=== PATIENT | female | born 1945 | race Caucasian/White ===

== ENCOUNTER 2016-08-14 10:57 | Emergency (ER) | payer MEDICARE, BC ==
[2016-08-14] MEDS ORDERED: ONDANSETRON 4 MG/2 ML VIAL IVP STA (11:58)
[2016-08-14] MEDS ORDERED: HYDROmorphone 1 MG/ML 1 ML SYRINGE IVP STA (11:58)
[2016-08-14] MEDS ORDERED: KETOROLAC 60 MG/2 ML VIAL IVP STA (11:58)
[2016-08-14] MEDS ORDERED: methylPREDNISolone SOD SUCCI 125 MG/2 ML VIAL IV STA (11:58)
--- NOTE | 2016-08-14 12:02 | ED ---
General Adult HPI - General Chief complaint: Weakness Stated complaint: LEG NUMBNESS, LOW BP, WEAKNESS Time Seen by Provider: 08/14/16 11:05 Source: patient, family, RN notes reviewed Mode of arrival: wheelchair Limitations: no limitations, physical limitation - History of Present Illness Initial comments: This is a 71-year-old female presents emergency department with past medical history significant for sciatica. Patient states this morning she bent over to brush her teeth and she started having pain in both of her legs behind the thighs. Patient states now there is some pain in the lower back pain patient denies any recent history of trauma. Patient states she has had pain before in her legs but he usually has one leg or the other. Patient denies any urinary incontinence or urinary retention. Patient denies any other symptoms at this time. She denies headache patient denies numbness weakness. Patient denies any chest pain difficult breathing shortness of breath. Patient denies any abdominal pain patient denies nausea vomiting diarrhea. Patient denies any recent fever chills or cough. - Related Data Home Medications Medication Instructions Recorded Confirmed Letrozole [Femara] 2.5 mg PO HS 01/16/14 08/14/16 Albuterol Inhaler [Ventolin Hfa 2 puff INHALATION RT-QID PRN 11/04/14 08/14/16 Inhaler] HYDROcodone/APAP 7.5-325MG [[place] 1 tab PO Q6HR PRN 02/26/15 08/14/16 7.5-325] Palbociclib [Ibrance] 125 mg PO DIRECTED 02/26/15 08/14/16 Albuterol Nebulized [Ventolin 2.5 mg INHALATION RT-QID PRN 04/02/15 08/14/16 Nebulized] Acetaminophen Tab [Tylenol] 500 mg PO Q6H PRN 09/02/15 08/14/16 Aspirin EC [Ecotrin Low Dose] 162 mg PO DAILY 09/02/15 08/14/16 Pantoprazole [Protonix] 40 mg PO AC-BRKFST 09/08/15 08/14/16 Cholecalciferol [Vitamin D3] 1,000 unit PO DAILY 12/15/15 08/14/16 LORazepam [Ativan] 0.5 mg PO TID PRN 12/15/15 08/14/16 Metoprolol Succinate [Toprol XL] 25 mg PO HS 12/15/15 08/14/16 Budesonide/Formoterol Fumarate 2 puff INHALATION RT-BID 01/21/16 08/14/16 [Symbicort 160-4.5 Mcg Inhaler] Furosemide [Lasix] 20 mg PO DAILY 03/11/16 08/14/16 Potassium Chloride ER [K-Dur 20] 20 meq PO DAILY 03/11/16 08/14/16 Fluticasone Nasal [place] [Flonase 1 spray EA NOSTRIL BID PRN 04/02/16 08/14/16 Nasal [place]] Sertraline [Zoloft] 100 mg PO DAILY 04/02/16 08/14/16 Cetirizine HCl [Zyrtec] 10 mg PO DAILY 08/14/16 08/14/16 Umeclidinium [place] [Incruse 1 puff INHALATION RT-DAILY 08/14/16 08/14/16 Ellipta] Previous Rx's Medication Instructions Recorded predniSONE 20 mg PO DAILY #50 04/04/16 Hydrocodone/Acetaminophen [[place] 1 each PO Q4HR PRN #20 tab 08/14/16 5-325] predniSONE 40 mg PO DAILY #8 tab 08/14/16 Allergies Allergy/AdvReac Type Severity Reaction Status Date / Time Sulfa (Sulfonamide Allergy Rash/Hives Verified 08/14/16 12:17 Antibiotics) Review of Systems ROS Statement: Those systems with pertinent positive or pertinent negative responses have been documented in the HPI. ROS Other: All systems not noted in ROS Statement are negative. 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, osteoporosis,sigmoid diverticulosis(per colonoscopy), chronic back pain , peripheral neuropathy d/t chemo tx's,HOME O2 3 LITERS N/C atc, ANEMIA HAD BLOOD TRANSFUSION, History of Any Multi-Drug Resistant Organisms: None Reported Past Surgical History: Appendectomy, Tonsillectomy Additional Past Surgical History / Comment(s): lt breast bx/ lt breast lumpectomy/ then mastectomy, injection into spine for siatic nerve pain, colonoscpy/polypectomy(benign) Past Anesthesia/Blood Transfusion Reactions: No Reported Reaction Additional Past Anesthesia/Blood Transfusion Reaction / Comment(s): RECEIVED BLOOD-NO REACTIONS. Past Psychological History: Anxiety Additional Psychological History / Comment(s): related to health, takes ativan, patient currently living with daughter Smoking Status: Former smoker Past Alcohol Use History: Rare Additional Past Alcohol Use History / Comment(s): STARTED SMOKING AT AGE 14, QUIT NOVEMBER 2014 Past Drug Use History: None Reported - Past Family History Mother Family Medical History: Cancer Additional Family Medical History / Comment(s): pancreatic cancer Father Family Medical History: Cancer Additional Family Medical History / Comment(s): LUNG CANCER Sister(s) Family Medical History: Cancer Additional Family Medical History / Comment(s): patient states that her 2 sisters both had pancreatic cancer General Exam - General Exam Comments Initial Comments: GENERAL: Patient is well-developed and well-nourished. Patient is nontoxic and well- hydrated and is in moderate distress. ENT: Neck is soft and supple. No significant lymphadenopathy is noted. Oropharynx is clear. Moist mucous membranes. Neck has full range of motion without eliciting any pain. EYES: The sclera were anicteric and conjunctiva were pink and moist. Extraocular movements were intact and pupils were equal round and reactive to light. Eyelids were unremarkable. PULMONARY: Unlabored respirations. Good breath sounds bilaterally. No audible rales rhonchi or wheezing was noted. CARDIOVASCULAR: There is a regular rate and rhythm without any murmurs gallops or rubs. ABDOMEN: Soft and nontender with normal bowel sounds. No palpable organomegaly was noted. There is no palpable pulsatile mass. SKIN: Skin is clear with no lesions or rashes and otherwise unremarkable. NEUROLOGIC: Patient is alert and oriented x3. Cranial nerves II through XII are grossly intact. Motor and sensory are also intact. Normal speech, volume and content. Symmetrical smile. Straight leg test is negative to about 60 bilaterally. Perineum sensation is normal MUSCULOSKELETAL: Normal extremities with adequate strength and full range of motion. No lower extremity swelling or edema. No calf tenderness. LYMPHATICS: No significant lymphadenopathy is noted PSYCHIATRIC: Normal psychiatric evaluation. Normal interpersonal interactions appears functionally intact in deals appropriately with others. No signs of depression. No signs of anxiety. Limitations: no limitations, physical limitation Course Vital Signs 08/14/16 08/14/16 08/14/16 11:01 11:44 12:12 Temperature 97.2 F L 98 F 97.9 F Pulse Rate 79 84 75 Respiratory 18 24 18 Rate Blood Pressure 103/58 103/64 121/57 O2 Sat by Pulse 96 97 94 L Oximetry 08/14/16 08/14/16 12:37 13:35 Temperature 97.1 F L Pulse Rate 76 80 Respiratory 18 18 Rate Blood Pressure 151/66 106/61 O2 Sat by Pulse 99 91 L Oximetry Medical Decision Making - Medical Decision Making EKG shows normal sinus rhythm at 79 bpm [place] interval 150 QRS is 94 Q-T intervals 46 QTC is 465. Patient has T-wave inversions in precordial leads V1 through V5. The patient daughter states that she had numbness of to the back of the thighs patient states it was not numb she still and full sensation but it felt tingly. After the patient received pain medicine she was able to ablate on her own with considerable ease and she felt much improved Disposition Clinical Impression: Sciatica Disposition: HOME SELF-CARE Condition: Good Instructions: Sciatica (ED) Prescriptions: Hydrocodone/Acetaminophen [[place] 5-325] 1 each PO Q4HR PRN #20 tab PRN Reason: Pain predniSONE 40 mg PO DAILY #8 tab Referrals: Luis Galicia MD [Primary Care Provider] - 1-2 days Time of Disposition: 14:02
[2016-08-14 12:13] VITALS: RESP 18
--- NOTE | 2016-08-14 13:18 | XR ---
EXAMINATION TYPE: XR lumbar spine 2 or 3V DATE OF EXAM: 08/14/2016 1:00 PM COMPARISON: 01/27/2014 HISTORY: 71-year-old female with pain TECHNIQUE: 3 views FINDINGS: There is degenerated levoconvex scoliosis. An IVC filter is present. Moderate to advanced multilevel disc/endplate degenerative change with endplate sclerosis, disc inter space narrowing, and endplate spondylosis. Hypertrophic facet arthropathy throughout. There is trace grade 1 anterolisthesis at L5-S1 and grade 1 retrolisthesis at L2-L3. Vertebral body heights are preserved. Overall appearance is similar to 2013. IMPRESSION: Moderate to advanced multilevel spondylotic change. Degenerative grade 1 retrolisthesis at L2-L3 and grade 1 anterolisthesis at L5-S1. Degenerated levoconvex scoliosis. No vertebral compression collapse .
[2016-08-14 13:45] VITALS: BP 106/61; PULSE 80; TEMP 97.1
== END 2016-08-14 14:10 | disposition home or self-care (01) ==
LOC: EC 10:57
DX: M54.41 Lumbago with sciatica, right side (principal); M54.42 Lumbago with sciatica, left side; C50.919 Malignant neoplasm of unspecified site of unspecified female breast; C77.9 Secondary and unspecified malignant neoplasm of lymph node, unspecified; J44.9 Chronic obstructive pulmonary disease, unspecified; I10 Essential (primary) hypertension; M06.9 Rheumatoid arthritis, unspecified; Z86.711 Personal history of pulmonary embolism; Z88.2 Allergy status to sulfonamides; Z79.51 Long term (current) use of inhaled steroids; Z79.82 Long term (current) use of aspirin; Z79.899 Other long term (current) drug therapy; Z87.891 Personal history of nicotine dependence
CPT/HCPCS: 99285; 96374; 96375 ×3; 72100; J2930; J2405; J1885; J1170

== ENCOUNTER 2016-08-20 08:36 | Inpatient (IN) | payer MEDICARE, BC ==
--- NOTE | 2016-08-20 10:53 | ED ---
Extremity Problem HPI - General Chief complaint: Extremity Problem,Nontraumatic Stated complaint: left leg swelling Time Seen by Provider: 08/20/16 10:25 Source: patient, family, RN notes reviewed Mode of arrival: wheelchair Limitations: no limitations - History of Present Illness Initial comments: This is a 71-year-old female history of chronic lung disease and home oxygen also history of blood clots in the past who states she started developing swelling to her left lower extremity yesterday when she got this when it was much worse. She has swelling from her feel real to her groin area. She states is somewhat uncomfortable she does have bruising to both lower extremities but the patient relates it to a dog and jumped in her lap all the time. She is on aspirin. She has chronic lung disease and does get exertional dyspnea and does not know if is any worsening usual. She denies any chest pain she denies any fevers chills or sweats. She denies any focal weakness to her upper or lower extremities. She states she was have a CAT scan today have her back due to recent episodes of pain radiating down the back of her legs. This was not done she was brought to the emergency department for evaluation. MD Complaint: extremity swelling - Related Data Home Medications Medication Instructions Recorded Confirmed Letrozole [Femara] 2.5 mg PO HS 01/16/14 08/20/16 Albuterol Inhaler [Ventolin Hfa 2 puff INHALATION RT-QID PRN 11/04/14 08/20/16 Inhaler] HYDROcodone/APAP 7.5-325MG [[place] 1 tab PO Q4H PRN 02/26/15 08/20/16 7.5-325] Palbociclib [Ibrance] 125 mg PO DIRECTED 02/26/15 08/20/16 Albuterol Nebulized [Ventolin 2.5 mg INHALATION RT-QID PRN 04/02/15 08/20/16 Nebulized] Acetaminophen Tab [Tylenol] 500 mg PO Q6H PRN 09/02/15 08/20/16 Aspirin EC [Ecotrin Low Dose] 162 mg PO DAILY 09/02/15 08/20/16 Pantoprazole [Protonix] 40 mg PO AC-BRKFST 09/08/15 08/20/16 Cholecalciferol [Vitamin D3] 1,000 unit PO DAILY 12/15/15 08/20/16 LORazepam [Ativan] 0.5 mg PO TID PRN 12/15/15 08/20/16 Metoprolol Succinate [Toprol XL] 12.5 mg PO HS 12/15/15 08/20/16 Budesonide/Formoterol Fumarate 2 puff INHALATION RT-BID 01/21/16 08/20/16 [Symbicort 160-4.5 Mcg Inhaler] Furosemide [Lasix] 40 mg PO DAILY 03/11/16 08/20/16 Potassium Chloride ER [K-Dur 20] 20 meq PO DAILY 03/11/16 08/20/16 Fluticasone Nasal [place] [Flonase 1 spray EA NOSTRIL BID PRN 04/02/16 08/20/16 Nasal [place]] Sertraline [Zoloft] 100 mg PO DAILY 04/02/16 08/20/16 Cetirizine HCl [Zyrtec] 10 mg PO DAILY 08/14/16 08/20/16 Umeclidinium [place] [Incruse 1 puff INHALATION RT-DAILY 08/14/16 08/20/16 Ellipta] Cyclobenzaprine [Flexeril] 10 mg PO HS 08/20/16 08/20/16 Previous Rx's Medication Instructions Recorded predniSONE 20 mg PO DAILY #50 04/04/16 Allergies Allergy/AdvReac Type Severity Reaction Status Date / Time Sulfa (Sulfonamide Allergy Rash/Hives Verified 08/20/16 12:24 Antibiotics) Review of Systems ROS Statement: Those systems with pertinent positive or pertinent negative responses have been documented in the HPI. ROS Other: All systems not noted in ROS Statement are negative. 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, osteoporosis,sigmoid diverticulosis(per colonoscopy), chronic back pain , peripheral neuropathy d/t chemo tx's,HOME O2 3 LITERS N/C atc, ANEMIA HAD BLOOD TRANSFUSION, History of Any Multi-Drug Resistant Organisms: None Reported Past Surgical History: Appendectomy, Tonsillectomy Additional Past Surgical History / Comment(s): lt breast bx/ lt breast lumpectomy/ then mastectomy, injection into spine for siatic nerve pain, colonoscpy/polypectomy(benign) Past Anesthesia/Blood Transfusion Reactions: No Reported Reaction Additional Past Anesthesia/Blood Transfusion Reaction / Comment(s): RECEIVED BLOOD-NO REACTIONS. Past Psychological History: Anxiety Additional Psychological History / Comment(s): related to health, takes ativan, patient currently living with daughter Smoking Status: Former smoker Past Alcohol Use History: Rare Additional Past Alcohol Use History / Comment(s): STARTED SMOKING AT AGE 14, QUIT NOVEMBER 2014 Past Drug Use History: None Reported - Past Family History Mother Family Medical History: Cancer Additional Family Medical History / Comment(s): pancreatic cancer Father Family Medical History: Cancer Additional Family Medical History / Comment(s): LUNG CANCER Sister(s) Family Medical History: Cancer Additional Family Medical History / Comment(s): patient states that her 2 sisters both had pancreatic cancer General Exam - General Exam Comments Initial Comments: This is a well-developed well-nourished awake alert oriented 3 female Limitations: no limitations General appearance: alert, in no apparent distress Head exam: Present: atraumatic, normocephalic, normal inspection Eye exam: Present: normal appearance, PERRL, EOMI. Absent: scleral icterus, conjunctival injection, periorbital swelling ENT exam: Present: normal exam, mucous membranes moist Neck exam: Present: normal inspection. Absent: tenderness, meningismus, lymphadenopathy Respiratory exam: Present: normal lung sounds bilaterally. Absent: respiratory distress, wheezes, rales, rhonchi, stridor Cardiovascular Exam: Present: regular rate, normal rhythm, normal heart sounds. Absent: systolic murmur, diastolic murmur, rubs, gallop, clicks GI/Abdominal exam: Present: soft, normal bowel sounds. Absent: distended, tenderness, guarding, rebound, rigid, bruit, pulsatile mass Rectal exam: Present: deferred Extremities exam: Present: full ROM, normal capillary refill, pedal edema, other (There is pedal edema noted to the lower extremities trace on the right about +1 on the left. There is some stasis changes which the family relates is chronic. She has been evaluated by her doctor and this apparently is normal. There is evidence of some ecchymosis in various areas and very states of healing. No palpable cords but there is some mild tenderness over the calf and femoral vein distribution.). Absent: tenderness, joint swelling, calf tenderness Back exam: Present: normal inspection Neurological exam: Present: alert, oriented X3, CN II-XII intact Psychiatric exam: Present: normal affect, normal mood Skin exam: Present: warm, dry, intact. Absent: rash Course Vital Signs 08/20/16 08/20/16 10:24 13:24 Temperature 98.6 F 98.2 F Pulse Rate 86 89 Respiratory 16 20 Rate Blood Pressure 124/60 118/68 O2 Sat by Pulse 93 L 98 Oximetry Medical Decision Making - Medical Decision Making I did a long discussion with patient family and multiple occasions also with Dr. Mitchell. Patient be admitted place on anticoagulants and proton pump inhibitors. Consultation by Dr. Camejo as well as Dr. Edmonds and cardiology. A VQ scan will be ordered. Patient does apparently have a [place] filter which was placed in 2014 this does decrease the chance of PE pelvis is still considered. - Lab Data Result diagrams: 08/20/16 10:59 08/20/16 10:59 Lab Results 08/20/16 08/20/16 08/20/16 Range/Units 10:59 10:59 10:59 WBC (3.8-10.6) k/uL RBC (3.80-5.40) m/uL Hgb (11.4-16.0) gm/dL Hct (34.0-46.0) % MCV (80.0-100.0) fL MCH (25.0-35.0) pg MCHC (31.0-37.0) g/dL RDW (11.5-15.5) % Plt Count (150-450) k/uL Neutrophils % % Lymphocytes % % Monocytes % % Eosinophils % % Basophils % % Neutrophils # (1.3-7.7) k/uL Lymphocytes # (1.0-4.8) k/uL Monocytes # (0-1.0) k/uL Eosinophils # (0-0.7) k/uL Basophils # (0-0.2) k/uL Macrocytosis PT 11.0 (9.0-12.0) sec INR 1.1 (<1.1) APTT 19.9 L (22.0-30.0) sec D-Dimer 21.68 H (<0.60) mg/L FEU Sodium (137-145) mmol/L Potassium (3.5-5.1) mmol/L Chloride (98-107) mmol/L Carbon Dioxide (22-30) mmol/L Anion Gap mmol/L BUN (7-17) mg/dL Creatinine (0.52-1.04) mg/dL Est GFR (MDRD) Af Amer (>60 ml/min/1.73 sqM) Est GFR (MDRD) Non-Af (>60 ml/min/1.73 sqM) Glucose (74-99) mg/dL Calcium (8.4-10.2) mg/dL Magnesium (1.6-2.3) mg/dL Total Bilirubin (0.2-1.3) mg/dL AST (14-36) U/L ALT (9-52) U/L Alkaline Phosphatase (38-126) U/L Total Creatine Kinase 88 (30-135) U/L CK-MB (CK-2) 2.3 (0.0-2.4) ng/mL CK-MB (CK-2) Rel Index 2.6 Troponin I 0.035 H* (0.000-0.034) ng/mL NT-Pro-B Natriuret Pep 1690 pg/mL Total Protein (6.3-8.2) g/dL Albumin (3.5-5.0) g/dL Urine Color Urine Appearance (Clear) Urine pH (5.0-8.0) Ur Specific [place] (1.001-1.035) Urine Protein (Negative) Urine Glucose (UA) (Negative) Urine Ketones (Negative) Urine Blood (Negative) Urine Nitrite (Negative) Urine Bilirubin (Negative) Urine Urobilinogen (<2.0) mg/dL Ur Leukocyte Esterase (Negative) 08/20/16 08/20/16 08/20/16 Range/Units 10:59 10:59 11:00 WBC 6.6 (3.8-10.6) k/uL RBC 3.04 L (3.80-5.40) m/uL Hgb 10.4 L (11.4-16.0) gm/dL Hct 32.0 L (34.0-46.0) % MCV 105.5 H (80.0-100.0) fL MCH 34.1 (25.0-35.0) pg MCHC 32.3 (31.0-37.0) g/dL RDW 15.5 (11.5-15.5) % Plt Count 123 L (150-450) k/uL Neutrophils % 90 % Lymphocytes % 5 % Monocytes % 3 % Eosinophils % 0 % Basophils % 1 % Neutrophils # 6.0 (1.3-7.7) k/uL Lymphocytes # 0.3 L (1.0-4.8) k/uL Monocytes # 0.2 (0-1.0) k/uL Eosinophils # 0.0 (0-0.7) k/uL Basophils # 0.0 (0-0.2) k/uL Macrocytosis Moderate PT (9.0-12.0) sec INR (<1.1) APTT (22.0-30.0) sec D-Dimer (<0.60) mg/L FEU Sodium 136 L (137-145) mmol/L Potassium 4.5 (3.5-5.1) mmol/L Chloride 99 (98-107) mmol/L Carbon Dioxide 24 (22-30) mmol/L Anion Gap 13 mmol/L BUN 55 H (7-17) mg/dL Creatinine 1.88 H (0.52-1.04) mg/dL Est GFR (MDRD) Af Amer 32 (>60 ml/min/1.73 sqM) Est GFR (MDRD) Non-Af 26 (>60 ml/min/1.73 sqM) Glucose 99 (74-99) mg/dL Calcium 8.5 (8.4-10.2) mg/dL Magnesium 2.7 H (1.6-2.3) mg/dL Total Bilirubin 0.8 (0.2-1.3) mg/dL AST 29 (14-36) U/L ALT 28 (9-52) U/L Alkaline Phosphatase 63 (38-126) U/L Total Creatine Kinase (30-135) U/L CK-MB (CK-2) (0.0-2.4) ng/mL CK-MB (CK-2) Rel Index Troponin I (0.000-0.034) ng/mL NT-Pro-B Natriuret Pep pg/mL Total Protein 7.2 (6.3-8.2) g/dL Albumin 4.4 (3.5-5.0) g/dL Urine Color Light Yellow Urine Appearance Clear (Clear) Urine pH 5.0 (5.0-8.0) Ur Specific [place] 1.007 (1.001-1.035) Urine Protein Negative (Negative) Urine Glucose (UA) Negative (Negative) Urine Ketones Negative (Negative) Urine Blood Negative (Negative) Urine Nitrite Negative (Negative) Urine Bilirubin Negative (Negative) Urine Urobilinogen <2.0 (<2.0) mg/dL Ur Leukocyte Esterase Negative (Negative) - EKG Data -: EKG Interpreted by [place] EKG shows normal: sinus rhythm (Sinus rhythm rate of 89. Interval 158 QRS duration 102 QT/QTC of 356/433 evidence of possible left atrial enlargement nonspecific ST-T wave configuration.) - Radiology Data Radiology results: report reviewed (Review the imaging shows evidence of DVT bilaterally present and complete report. X-ray shows shows some evidence of a mild infiltrate retrocardiac left base atelectasis versus early infiltrate.), image reviewed Disposition Clinical Impression: Deep vein thrombosis of lower extremity, Renal insufficiency syndrome, Chronic obstructive pulmonary disease (COPD), Peripheral edema Disposition: [facility] Condition: Stable
[2016-08-20 11:13] LABS: Basophils % (A) 1 %; CHCM 33.3; Eosinophils % (A) 0 %; HDW 2.78; HGB 10.4 gm/dL (11.4-16.0); Luc # (Auto) 0.07; Luc % (Auto) 1; Lymphocytes # (A) 0.3 k/uL (1.0-4.8); Lymphocytes % (A) 5 %; MCH 34.1 pg (25.0-35.0); MCHC 32.3 g/dL (31.0-37.0); MCV 105.5 fL (80.0-100.0); Macrocytosis Moderate; Mean Platelet Volume 7.9; Monocytes # (A) 0.2 k/uL (0-1.0); Monocytes % (A) 3 %; Neutrophils % (A) 90 %; RBC 3.04 m/uL (3.80-5.40); RDW 15.5 % (11.5-15.5); WBC 6.6 k/uL (3.8-10.6); WBC (Perox) 6.76
[2016-08-20 11:22] LABS: Appearance,Urine Clear (Clear); Bilirubin,Urine Negative (Negative); Glucose,Urine (UA) Negative (Negative); Ketones,Urine Negative (Negative); Leukocyte Esterase,Urine Negative (Negative); Nitrite,Urine Negative (Negative); Protein,Urine Negative (Negative); Specific Gravity,Urine 1.007 (1.001-1.035); UA Billing (MACRO vs. MICRO) CHEM; Urobilinogen,Urine <2.0 mg/dL (<2.0)
[2016-08-20 11:36] LABS: Calcium 8.5 mg/dL (8.4-10.2); Magnesium 2.7 mg/dL (1.6-2.3); Potassium 4.5 mmol/L (3.5-5.1); Total Bilirubin 0.8 mg/dL (0.2-1.3); Total Protein 7.2 g/dL (6.3-8.2)
[2016-08-20 11:37] LABS: INR 1.1 (<1.1)
[2016-08-20 11:45] LABS: Partial Thromboplastin Time 19.9 sec (22.0-30.0)
[2016-08-20 11:57] LABS: Creatine Kinase MB 2.3 ng/mL (0.0-2.4)
[2016-08-20 12:04] LABS: Troponin I 0.035 ng/mL (0.000-0.034)
--- NOTE | 2016-08-20 12:16 | XR ---
EXAMINATION TYPE: XR chest 2V DATE OF EXAM: 08/20/2016 12:10 PM COMPARISON: 04/02/2016 INDICATION: Cough TECHNIQUE: 2 view chest FINDINGS: The heart size is upper limits of normal. The pulmonary vasculature is normal. There is a 2.0 cm nodule within the mid right lung. This was present previously. No interval growth is evident. There is a retrocardiac area of increased density with some linear opacity. Atelectasis and early pne umonia could be considered. Correlate with the patient's clinical symptoms. IMPRESSION: 1. Mild infiltrate retrocardiac left base. Correlate for atelectasis or early pneumonia 2. .Stable nodule right midlung.
--- NOTE | 2016-08-20 13:23 | US ---
EXAMINATION TYPE: US venous doppler duplex LE BI DATE OF EXAM: 08/20/2016 1:00 PM COMPARISON: 2015 BLE CLINICAL HISTORY: Pain. prior dvt in right leg, only currently taking 2 aspirin daily, left leg pain and swelling SIDE PERFORMED: bilateral TECHNIQUE: The lower extremity deep venous system is examined utilizing real time linear array sonog avinash with graded compression, doppler sonography and color-flow sonography. VESSELS IMAGED: External Iliac Vein (EIV) Common Femoral Vein Deep Femoral Vein Greater Saphenous Vein * Femoral Vein Popliteal Vein Small Saphenous Vein * Proximal Calf Veins (* superficial vessels) technically difficult study due to edema and poor tolerance to the transducer. Right Leg: non-occlusive thrombus in the rt cfv and femoral vns Left Leg: non-occlusive thrombus at the left cfv, femoral vn and pop IMPRESSION: Deep venous thrombosis bilateral lower extremities. This may be chronic with incomplete o bstruction. Technical factors limit the examination.
[2016-08-20] MEDS ORDERED: HYDROmorphone 1 MG/ML 1 ML SYRINGE IVP STA (14:20)
[2016-08-20] MEDS ORDERED: RX INFO: IV CONTRAST WAS GIVEN 1 EACH MISC MISCELLANE PRN (14:40)
[2016-08-20] MEDS ORDERED: NALOXONE 0.4 MG/ML 1 ML VIAL IV PRN (15:31)
--- NOTE | 2016-08-20 15:31 | ED ---
Medical Decision Making - Lab Data Result diagrams: 08/20/16 10:59 08/20/16 10:59 Lab Results 08/20/16 08/20/16 08/20/16 Range/Units 10:59 10:59 10:59 WBC (3.8-10.6) k/uL RBC (3.80-5.40) m/uL Hgb (11.4-16.0) gm/dL Hct (34.0-46.0) % MCV (80.0-100.0) fL MCH (25.0-35.0) pg MCHC (31.0-37.0) g/dL RDW (11.5-15.5) % Plt Count (150-450) k/uL Neutrophils % % Lymphocytes % % Monocytes % % Eosinophils % % Basophils % % Neutrophils # (1.3-7.7) k/uL Lymphocytes # (1.0-4.8) k/uL Monocytes # (0-1.0) k/uL Eosinophils # (0-0.7) k/uL Basophils # (0-0.2) k/uL Macrocytosis PT 11.0 (9.0-12.0) sec INR 1.1 (<1.1) APTT 19.9 L (22.0-30.0) sec D-Dimer 21.68 H (<0.60) mg/L FEU Sodium (137-145) mmol/L Potassium (3.5-5.1) mmol/L Chloride (98-107) mmol/L Carbon Dioxide (22-30) mmol/L Anion Gap mmol/L BUN (7-17) mg/dL Creatinine (0.52-1.04) mg/dL Est GFR (MDRD) Af Amer (>60 ml/min/1.73 sqM) Est GFR (MDRD) Non-Af (>60 ml/min/1.73 sqM) Glucose (74-99) mg/dL Calcium (8.4-10.2) mg/dL Magnesium (1.6-2.3) mg/dL Total Bilirubin (0.2-1.3) mg/dL AST (14-36) U/L ALT (9-52) U/L Alkaline Phosphatase (38-126) U/L Total Creatine Kinase 88 (30-135) U/L CK-MB (CK-2) 2.3 (0.0-2.4) ng/mL CK-MB (CK-2) Rel Index 2.6 Troponin I 0.035 H* (0.000-0.034) ng/mL NT-Pro-B Natriuret Pep 1690 pg/mL Total Protein (6.3-8.2) g/dL Albumin (3.5-5.0) g/dL Urine Color Urine Appearance (Clear) Urine pH (5.0-8.0) Ur Specific [place] (1.001-1.035) Urine Protein (Negative) Urine Glucose (UA) (Negative) Urine Ketones (Negative) Urine Blood (Negative) Urine Nitrite (Negative) Urine Bilirubin (Negative) Urine Urobilinogen (<2.0) mg/dL Ur Leukocyte Esterase (Negative) 08/20/16 08/20/16 08/20/16 Range/Units 10:59 10:59 11:00 WBC 6.6 (3.8-10.6) k/uL RBC 3.04 L (3.80-5.40) m/uL Hgb 10.4 L (11.4-16.0) gm/dL Hct 32.0 L (34.0-46.0) % MCV 105.5 H (80.0-100.0) fL MCH 34.1 (25.0-35.0) pg MCHC 32.3 (31.0-37.0) g/dL RDW 15.5 (11.5-15.5) % Plt Count 123 L (150-450) k/uL Neutrophils % 90 % Lymphocytes % 5 % Monocytes % 3 % Eosinophils % 0 % Basophils % 1 % Neutrophils # 6.0 (1.3-7.7) k/uL Lymphocytes # 0.3 L (1.0-4.8) k/uL Monocytes # 0.2 (0-1.0) k/uL Eosinophils # 0.0 (0-0.7) k/uL Basophils # 0.0 (0-0.2) k/uL Macrocytosis Moderate PT (9.0-12.0) sec INR (<1.1) APTT (22.0-30.0) sec D-Dimer (<0.60) mg/L FEU Sodium 136 L (137-145) mmol/L Potassium 4.5 (3.5-5.1) mmol/L Chloride 99 (98-107) mmol/L Carbon Dioxide 24 (22-30) mmol/L Anion Gap 13 mmol/L BUN 55 H (7-17) mg/dL Creatinine 1.88 H (0.52-1.04) mg/dL Est GFR (MDRD) Af Amer 32 (>60 ml/min/1.73 sqM) Est GFR (MDRD) Non-Af 26 (>60 ml/min/1.73 sqM) Glucose 99 (74-99) mg/dL Calcium 8.5 (8.4-10.2) mg/dL Magnesium 2.7 H (1.6-2.3) mg/dL Total Bilirubin 0.8 (0.2-1.3) mg/dL AST 29 (14-36) U/L ALT 28 (9-52) U/L Alkaline Phosphatase 63 (38-126) U/L Total Creatine Kinase (30-135) U/L CK-MB (CK-2) (0.0-2.4) ng/mL CK-MB (CK-2) Rel Index Troponin I (0.000-0.034) ng/mL NT-Pro-B Natriuret Pep pg/mL Total Protein 7.2 (6.3-8.2) g/dL Albumin 4.4 (3.5-5.0) g/dL Urine Color Light Yellow Urine Appearance Clear (Clear) Urine pH 5.0 (5.0-8.0) Ur Specific [place] 1.007 (1.001-1.035) Urine Protein Negative (Negative) Urine Glucose (UA) Negative (Negative) Urine Ketones Negative (Negative) Urine Blood Negative (Negative) Urine Nitrite Negative (Negative) Urine Bilirubin Negative (Negative) Urine Urobilinogen <2.0 (<2.0) mg/dL Ur Leukocyte Esterase Negative (Negative) Disposition Clinical Impression: Deep vein thrombosis of lower extremity, Renal insufficiency syndrome, Chronic obstructive pulmonary disease (COPD), Peripheral edema Disposition: [facility] Condition: Stable Referrals: Luis Galiica MD [Primary Care Provider] - 1-2 days Time of Disposition: 14:10
[2016-08-20] MEDS ORDERED: HEPARIN SODIUM,PORCINE 5,000 UNIT/ML 1 ML VIAL IV STA (15:35)
[2016-08-20] MEDS ORDERED: FLUTICASONE 50MCG/SPRAY NASAL 16GM EA NOSTRIL PRN (15:37)
[2016-08-20] MEDS ORDERED: ACETAMINOPHEN TAB 500 MG TAB PO PRN (15:37)
--- NOTE | 2016-08-20 15:40 | ED ---
Medical Decision Making - Lab Data Result diagrams: 08/20/16 10:59 08/20/16 10:59 Lab Results 08/20/16 08/20/16 08/20/16 Range/Units 10:59 10:59 10:59 WBC (3.8-10.6) k/uL RBC (3.80-5.40) m/uL Hgb (11.4-16.0) gm/dL Hct (34.0-46.0) % MCV (80.0-100.0) fL MCH (25.0-35.0) pg MCHC (31.0-37.0) g/dL RDW (11.5-15.5) % Plt Count (150-450) k/uL Neutrophils % % Lymphocytes % % Monocytes % % Eosinophils % % Basophils % % Neutrophils # (1.3-7.7) k/uL Lymphocytes # (1.0-4.8) k/uL Monocytes # (0-1.0) k/uL Eosinophils # (0-0.7) k/uL Basophils # (0-0.2) k/uL Macrocytosis PT 11.0 (9.0-12.0) sec INR 1.1 (<1.1) APTT 19.9 L (22.0-30.0) sec D-Dimer 21.68 H (<0.60) mg/L FEU Sodium (137-145) mmol/L Potassium (3.5-5.1) mmol/L Chloride (98-107) mmol/L Carbon Dioxide (22-30) mmol/L Anion Gap mmol/L BUN (7-17) mg/dL Creatinine (0.52-1.04) mg/dL Est GFR (MDRD) Af Amer (>60 ml/min/1.73 sqM) Est GFR (MDRD) Non-Af (>60 ml/min/1.73 sqM) Glucose (74-99) mg/dL Calcium (8.4-10.2) mg/dL Magnesium (1.6-2.3) mg/dL Total Bilirubin (0.2-1.3) mg/dL AST (14-36) U/L ALT (9-52) U/L Alkaline Phosphatase (38-126) U/L Total Creatine Kinase 88 (30-135) U/L CK-MB (CK-2) 2.3 (0.0-2.4) ng/mL CK-MB (CK-2) Rel Index 2.6 Troponin I 0.035 H* (0.000-0.034) ng/mL NT-Pro-B Natriuret Pep 1690 pg/mL Total Protein (6.3-8.2) g/dL Albumin (3.5-5.0) g/dL Urine Color Urine Appearance (Clear) Urine pH (5.0-8.0) Ur Specific [place] (1.001-1.035) Urine Protein (Negative) Urine Glucose (UA) (Negative) Urine Ketones (Negative) Urine Blood (Negative) Urine Nitrite (Negative) Urine Bilirubin (Negative) Urine Urobilinogen (<2.0) mg/dL Ur Leukocyte Esterase (Negative) 08/20/16 08/20/16 08/20/16 Range/Units 10:59 10:59 11:00 WBC 6.6 (3.8-10.6) k/uL RBC 3.04 L (3.80-5.40) m/uL Hgb 10.4 L (11.4-16.0) gm/dL Hct 32.0 L (34.0-46.0) % MCV 105.5 H (80.0-100.0) fL MCH 34.1 (25.0-35.0) pg MCHC 32.3 (31.0-37.0) g/dL RDW 15.5 (11.5-15.5) % Plt Count 123 L (150-450) k/uL Neutrophils % 90 % Lymphocytes % 5 % Monocytes % 3 % Eosinophils % 0 % Basophils % 1 % Neutrophils # 6.0 (1.3-7.7) k/uL Lymphocytes # 0.3 L (1.0-4.8) k/uL Monocytes # 0.2 (0-1.0) k/uL Eosinophils # 0.0 (0-0.7) k/uL Basophils # 0.0 (0-0.2) k/uL Macrocytosis Moderate PT (9.0-12.0) sec INR (<1.1) APTT (22.0-30.0) sec D-Dimer (<0.60) mg/L FEU Sodium 136 L (137-145) mmol/L Potassium 4.5 (3.5-5.1) mmol/L Chloride 99 (98-107) mmol/L Carbon Dioxide 24 (22-30) mmol/L Anion Gap 13 mmol/L BUN 55 H (7-17) mg/dL Creatinine 1.88 H (0.52-1.04) mg/dL Est GFR (MDRD) Af Amer 32 (>60 ml/min/1.73 sqM) Est GFR (MDRD) Non-Af 26 (>60 ml/min/1.73 sqM) Glucose 99 (74-99) mg/dL Calcium 8.5 (8.4-10.2) mg/dL Magnesium 2.7 H (1.6-2.3) mg/dL Total Bilirubin 0.8 (0.2-1.3) mg/dL AST 29 (14-36) U/L ALT 28 (9-52) U/L Alkaline Phosphatase 63 (38-126) U/L Total Creatine Kinase (30-135) U/L CK-MB (CK-2) (0.0-2.4) ng/mL CK-MB (CK-2) Rel Index Troponin I (0.000-0.034) ng/mL NT-Pro-B Natriuret Pep pg/mL Total Protein 7.2 (6.3-8.2) g/dL Albumin 4.4 (3.5-5.0) g/dL Urine Color Light Yellow Urine Appearance Clear (Clear) Urine pH 5.0 (5.0-8.0) Ur Specific [place] 1.007 (1.001-1.035) Urine Protein Negative (Negative) Urine Glucose (UA) Negative (Negative) Urine Ketones Negative (Negative) Urine Blood Negative (Negative) Urine Nitrite Negative (Negative) Urine Bilirubin Negative (Negative) Urine Urobilinogen <2.0 (<2.0) mg/dL Ur Leukocyte Esterase Negative (Negative) Critical Care Time Critical Care Time: Yes Critical Care Time: 33 minutes critical care time which includes initial presentation with history physical lab and x-rays reevaluation the patient several occasions discussion with the family members regarding the findings. All lab and x-ray and imaging. Discussion with the admitting physician review of old charting. Documentation above and initial orders. Disposition Clinical Impression: Deep vein thrombosis of lower extremity, Renal insufficiency syndrome, Chronic obstructive pulmonary disease (COPD), Peripheral edema, CHF (congestive heart failure) Disposition: ADMITTED IP TO THIS [facility]OSP Condition: Stable Referrals: Luis Galicia MD [Primary Care Provider] - 1-2 days
[2016-08-20] MEDS: HEPARIN SODIUM,PORCINE/D5W PMX 25,000 UNIT in DEXTROSE/WATER 1 500ML.BAG IV SCH (15:48)
[2016-08-20] MEDS: SODIUM CHLORIDE 0.9% 1,000 ML IV SCH (16:18)
[2016-08-20 17:03] VITALS: BMI 30.2
[2016-08-20] MEDS ORDERED: IBRANCE 125 MG PO SCH (18:30)
[2016-08-20] MEDS: ALBUTEROL NEBULIZED 2.5 MG/3 ML INHALATION PRN (19:31)
[2016-08-20] MEDS: SYMBICORT 160-4.5 MCG INHALER INHALATION SCH (19:32)
[2016-08-20] MEDS ORDERED: ARTIFICIAL TEARS-HYPROMELLOSE DROPS 15 ML BTL BOTH EYES PRN (20:30)
[2016-08-20] MEDS: FUROSEMIDE 10 MG/ML 4 ML VIAL IV SCH (20:45)
[2016-08-20] MEDS: PANTOPRAZOLE 40 MG/10 ML VIAL IV SCH (20:45)
[2016-08-20] MEDS: METOPROLOL SUCCINATE (ER) 25 MG TAB.ER.24H PO SCH (20:45)
[2016-08-20] MEDS: LETROZOLE 2.5 MG TAB PO SCH (20:45)
[2016-08-20] MEDS: CYCLOBENZAPRINE 10 MG TAB PO SCH (20:45)
[2016-08-20] MEDS: IBRANCE 125 MG PO SCH (20:46)
[2016-08-20] MEDS: HYDROcodone/APAP 7.5-325MG 1 EACH TAB PO PRN (22:32)
[2016-08-21] MEDS: HYDROcodone/APAP 7.5-325MG 1 EACH TAB PO PRN ×2 (03:39→20:35)
[2016-08-21] MEDS: ALBUTEROL NEBULIZED 2.5 MG/3 ML INHALATION PRN ×3 (07:44→20:03)
[2016-08-21] MEDS: SYMBICORT 160-4.5 MCG INHALER INHALATION SCH ×2 (07:44→20:03)
[2016-08-21] MEDS: POTASSIUM CHLORIDE ER 20 MEQ TAB.ER PO SCH (08:15)
[2016-08-21] MEDS: FUROSEMIDE 10 MG/ML 4 ML VIAL IV SCH ×2 (08:15→20:40)
[2016-08-21] MEDS: ASPIRIN 81 MG CHEW PO SCH (08:15)
[2016-08-21] MEDS: LORATADINE 10 MG TAB PO SCH (08:15)
[2016-08-21] MEDS: PANTOPRAZOLE 40 MG/10 ML VIAL IV SCH ×2 (08:15→20:40)
[2016-08-21] MEDS: predniSONE 20 MG TAB PO SCH (08:16)
[2016-08-21] MEDS: SERTRALINE 100 MG TAB PO SCH (08:16)
[2016-08-21] MEDS: CHOLECALCIFEROL 1,000 UNIT TAB PO SCH (08:16)
[2016-08-21] MEDS: LORazepam 0.5 MG TAB PO PRN ×2 (08:43→15:32)
[2016-08-21] MEDS ORDERED: FUROSEMIDE 40 MG TAB PO SCH (09:00)
[2016-08-21] MEDS ORDERED: MAGNESIUM HYDROXIDE 2,400 MG/10 ML CUP PO PRN (09:11)
[2016-08-21 09:14] LABS: Calcium 8.1 mg/dL (8.4-10.2); Potassium 3.8 mmol/L (3.5-5.1)
[2016-08-21] MEDS: HEPARIN SODIUM,PORCINE/D5W PMX 25,000 UNIT in DEXTROSE/WATER 1 500ML.BAG IV SCH (09:42)
--- NOTE | 2016-08-21 11:07 | P.CNPUL ---
History of Present Illness Consult date: 08/21/16 Requesting physician: Clint Mitchell Reason for consult: dyspnea Chief complaint: Swelling of both legs History of present illness: This is a 71-year-old female with history of multiple medical problems, patient is known to have history of breast cancer and history of multiple pulmonary nodules which were felt to be metastatic in nature unless proven otherwise. However PET scanning in the past few months, showed no evidence of hypermetabolic activity in the nodules. Patient follows closely with the oncologist she also follows up closely with Dr. Mathur in the office. She is known to have history of COPD, previous history of deep vein thromboses and pulmonary embolism, however patient bled significantly from her GI tract/ulcer when she was taking Xarelto. Hence the patient was advised to have a Raymond filter and no anticoagulation therapy in the last couple of years. This time the patient presented with increased swelling in both lower extremities, venous Doppler was positive for bilateral deep vein thrombosis in both legs. It showed nonocclusive thrombus in right and left common femoral veins and popliteal veins. Patient was started on heparin and she is now scheduled to have a VQ scan. Patient is describing some shortness of breath and occasional cough and wheezing, no fever no chills no hemoptysis. No headache no blurred vision no dizziness no nausea no vomiting no abdominal pain no melena no hematemesis. No dysuria frequency urgency or hematuria. Chest x- ray showed chronic retrocardiac changes in the left base documented previously on previous CT of the chest on multiple occasions. And it showed stable right midlung nodule. VQ scan is pending at the time of my dictation. In the meantime the patient is receiving heparin and she is on bronchodilators. Review of Systems 14 point review of systems were obtained, please refer to pertinent positives and negatives as per HPI. 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, osteoporosis,sigmoid diverticulosis(per colonoscopy), chronic back pain , peripheral neuropathy d/t chemo tx's,HOME O2 3 LITERS N/C atc, ANEMIA HAD BLOOD TRANSFUSION, History of Any Multi-Drug Resistant Organisms: None Reported Past Surgical History: Appendectomy, Tonsillectomy Additional Past Surgical History / Comment(s): lt breast bx/ lt breast lumpectomy/ then mastectomy, injection into spine for siatic nerve pain, colonoscpy/polypectomy(benign), cyst removed from ovary Past Anesthesia/Blood Transfusion Reactions: No Reported Reaction Additional Past Anesthesia/Blood Transfusion Reaction / Comment(s): RECEIVED BLOOD-NO REACTIONS. Past Psychological History: Anxiety Additional Psychological History / Comment(s): related to health, takes ativan, patient currently living with daughter Smoking Status: Former smoker Past Alcohol Use History: Rare Additional Past Alcohol Use History / Comment(s): STARTED SMOKING AT AGE 14, QUIT NOVEMBER 2014 Past Drug Use History: None Reported - Past Family History Mother Family Medical History: Cancer Additional Family Medical History / Comment(s): pancreatic cancer Father Family Medical History: Cancer Additional Family Medical History / Comment(s): LUNG CANCER Sister(s) Family Medical History: Cancer Additional Family Medical History / Comment(s): patient states that her 2 sisters both had pancreatic cancer Medications and Allergies Home Medications Medication Instructions Recorded Confirmed Type Letrozole [Femara] 2.5 mg PO HS 01/16/14 08/20/16 History Albuterol Inhaler [Ventolin Hfa 2 puff INHALATION RT-QID PRN 11/04/14 08/20/16 History Inhaler] HYDROcodone/APAP 7.5-325MG [[place] 1 tab PO Q4H PRN 02/26/15 08/20/16 History 7.5-325] Palbociclib [Ibrance] 125 mg PO DIRECTED 02/26/15 08/20/16 History Albuterol Nebulized [Ventolin 2.5 mg INHALATION RT-QID PRN 04/02/15 08/20/16 History Nebulized] Acetaminophen Tab [Tylenol] 500 mg PO Q6H PRN 09/02/15 08/20/16 History Aspirin EC [Ecotrin Low Dose] 162 mg PO DAILY 09/02/15 08/20/16 History Pantoprazole [Protonix] 40 mg PO [id number] 09/08/15 08/20/16 History Cholecalciferol [Vitamin D3] 1,000 unit PO DAILY 12/15/15 08/20/16 History LORazepam [Ativan] 0.5 mg PO TID PRN 12/15/15 08/20/16 History Metoprolol Succinate [Toprol XL] 12.5 mg PO HS 12/15/15 08/20/16 History Budesonide/Formoterol Fumarate 2 puff INHALATION RT-BID 01/21/16 08/20/16 History [Symbicort 160-4.5 Mcg Inhaler] Furosemide [Lasix] 40 mg PO DAILY 03/11/16 08/20/16 History Potassium Chloride ER [K-Dur 20] 20 meq PO DAILY 03/11/16 08/20/16 History Fluticasone Nasal Bend [Flonase 1 spray EA NOSTRIL BID PRN 04/02/16 08/20/16 History Nasal Bend] Sertraline [Zoloft] 100 mg PO DAILY 04/02/16 08/20/16 History Cetirizine HCl [Zyrtec] 10 mg PO DAILY 08/14/16 08/20/16 History Umeclidinium [place] [Incruse 1 puff INHALATION RT-DAILY 08/14/16 08/20/16 History Ellipta] Cyclobenzaprine [Flexeril] 10 mg PO HS 08/20/16 08/20/16 History Allergies Allergy/AdvReac Type Severity Reaction Status Date / Time Sulfa (Sulfonamide Allergy Rash/Hives Verified 08/20/16 12:24 Antibiotics) Physical Exam Vitals: Vital Signs Temp Pulse Pulse Pulse Resp BP BP 08/21/16 08:15 97.5 F L 87 18 124/60 08/21/16 07:56 84 08/21/16 07:44 84 16 08/21/16 04:00 97.5 F L 76 18 113/57 08/20/16 23:41 97.6 F 93 16 117/68 08/20/16 20:00 96.8 F L 93 16 121/71 08/20/16 19:49 90 08/20/16 19:32 90 08/20/16 17:14 97.3 F L 100 18 127/75 08/20/16 15:54 98.2 F 90 20 105/68 Pulse Ox 08/21/16 08:15 98 08/21/16 07:56 08/21/16 07:44 94 L 08/21/16 04:00 97 08/20/16 23:41 92 L 08/20/16 20:00 94 L 08/20/16 19:49 08/20/16 19:32 08/20/16 17:14 92 L 08/20/16 15:54 97 Intake and Output 08/20/16 08/21/16 08/21/16 22:59 06:59 14:59 Intake Total 542.661 300.849 Output Total 300 200 Balance 542.661 -300 100.849 Intake: IV 368 Heparin Sodium,Porcine/ 208 D5w Pmx 25,000 unit In Dextrose/Water 1 500ml. bag @ 18 UNITS/KG/HR 26. 94 mls/hr IV .[id number] [facility] Rx#:[id number] Sodium Chloride 0.9% 1, 160 000 ml @ 20 mls/hr IV . Q24H [facility] Rx#:[id number] Intake, IV Titration 174.661 300.849 Amount Heparin Sodium,Porcine/ 174.661 300.849 D5w Pmx 25,000 unit In Dextrose/Water 1 500ml. bag @ 18 UNITS/KG/HR 26. 94 mls/hr IV .[id number] [facility] Rx#:[id number] Output: Urine 300 200 Other: Voiding Method Bedpan Bedpan Bedpan Weight 74.843 kg 75.5 kg Physical Exam: Revealed a 71-year-old female in no distress. HEENT:[Neck is supple.] [No neck masses.] [No thyromegaly.] [No JVD.] Chest: [Crackles mostly at the left base and expiratory rhonchi noted.] Cardiac Exam: [Normal S1 and S2, no S3 gallop, 2/6 systolic murmur throughout the precordium.] Abdomen: [Soft, nontender, no megaly, no rebound, no guarding, normal bowel sounds.] Extremities: [Bilateral lower extremities swelling was noted. 2+ bipedal edema , venous stasis changes were noted and they seem to be chronic. Some ecchymosis is noted in various areas of lower extremities. Minimal tenderness in the calf regions bilaterally. Neurological Exam: [No focal neurologic deficit.] Results - Laboratory Findings CBC and BMP: 08/20/16 10:59 08/21/16 06:19 PT/INR, D-dimer PT 11.0 sec (9.0-12.0) 08/20/16 10:59 INR 1.1 (<1.1) 08/20/16 10:59 D-Dimer 21.68 mg/L FEU (<0.60) H 08/20/16 10:59 Abnormal lab findings: Abnormal Labs 08/20/16 08/21/16 08/21/16 21:51 06:19 06:19 APTT 72.0 H 87.4 H BUN 52 H Creatinine 1.70 H Glucose 103 H Calcium 8.1 L - Diagnostic Findings Chest x-ray: image reviewed (Agree with reading as per the radiologist, however the left lower lobe findings are chronic and noted on previous x-rays and CT of the chest.) Assessment and Plan Plan: Impression: 1 acute on chronic deep vein thromboses involving both lower extremities. 2 possible pulmonary embolism, patient is scheduled to have a VQ scan, results of which are pending, however that's will not change the recommendation of starting the patient on heparin, and eventually plan on discharging the patient home on Lovenox. I wouldn't recommend Xarelto or Coumadin at this point. 3 history of severe COPD Gold stage III patient is back on her bronchodilators. 4 history of multiple comorbidities including metastatic breast cancer, rheumatoid arthritis, multiple pulmonary nodules could be malignant or could be related to rheumatoid arthritis. History of upper GI bleeding and history of diverticulosis. History of peripheral neuropathy history of osteoporosis history of pulmonary embolism Recommendation: Continue present treatment plan, resume patient on her usual meds, continue IV heparin, switched tomorrow to subcu Lovenox, and must consider discharge planning on Lovenox for treatment of DVT and possible pulmonary embolism. Watch patient closely for any symptoms of GI bleeding. We' ll continue to follow. Time with Patient: Greater than 30
--- NOTE | 2016-08-21 11:21 | P.HPIM ---
History of Present Illness H&P Date: 08/21/16 Chief Complaint: Shortness of breath, lower extremity edema This is a 71-year-old female patient of Dr. 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 She had neoadjuvant chemotherapy followed by mastectomy in July 2008 followed by consolidative radiation therapy. She was started on Femara in October 2008. In January 2014 she presented with left-sided low back pain along with weight loss. Weight loss continued over the next year and in 12/30, a PET scan was ordered revealing evidence of metastasis in the bones, most prominently at T11 as well as in the pelvic girdle. At that time the patient did have lung nodules, with the most prominent lesion being about 6 mm in the right posterolateral lung base. She also had liver nodules. These were negative on PET scan. She was switched to Ibrance and Femara, as well as Xgeva. In 03/01, she developed right lower extremity DVT and bilateral PE and was started on Xarelto. Subsequently, she developed left-sided neurologic deficit due to a CVA and aspirin was added. In mid 03/31 she developed GI bleeding. Xarelto was stopped and an IVC filter placed. She continued on the same regimen for her breast cancer, without any evidence of progression. The patient has significant COPD and has had recurrent admissions for COPD exacerbation. Repeat CTA showed increase in size of the right posterolateral a lung nodule, which is now 1.5 cm. A couple of lesions noted in the liver, the largest 1.12.4 cm in the medial segment of the left lobe. Her most recent hospitalization was March 2016 which time she was treated for acute respiratory failure due to acute exacerbation of COPD and diastolic heart failure. Dr. Mathur is her pulmonary physician and Dr. Garcia is following her for oncology and she is currently on Incruse Ellipta, Ibrance, Femara. Patient states she developed lower extremity edema more so on the left leg and came back into [facility] emergency center. A venous Doppler was positive for bilateral DVTs in both legs. It showed nonocclusive thrombus in the right and left common femoral veins and popliteal veins. Patient was started on a heparin drip and admitted to the selective care unit. As morning she developed shortness of breath. She was unable to go for a CAT scan of the chest due to renal function. She is on IV Lasix and DuoNeb treatments. A V/Q scan has been scheduled and patient admitted to the selective care unit and consults in place with Dr. Edmonds, oncology, cardiology and we have added in consult with Dr. Hatch regarding [place] filter. Review of Systems All systems: negative Constitutional: Denies chills, Denies fever Eyes: denies blurred vision, denies pain Ears, nose, mouth and throat: Denies headache, Denies sore throat Cardiovascular: Reports decreased exercise tolerance, Reports dyspnea on exertion, Reports edema, Reports leg edema, Reports shortness of breath, Denies chest pain Respiratory: Reports dyspnea, Denies cough Gastrointestinal: Denies abdominal pain, Denies diarrhea, Denies nausea, Denies vomiting Genitourinary: Denies dysuria, Denies hematuria Musculoskeletal: Denies myalgias Integumentary: Denies pruritus, Denies rash Neurological: Denies numbness, Denies weakness Psychiatric: Denies anxiety, Denies depression Endocrine: Denies fatigue, Denies weight change 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, osteoporosis,sigmoid diverticulosis(per colonoscopy), chronic back pain , peripheral neuropathy d/t chemo tx's,HOME O2 3 LITERS N/C atc, ANEMIA HAD BLOOD TRANSFUSION, History of Any Multi-Drug Resistant Organisms: None Reported Past Surgical History: Appendectomy, Tonsillectomy Additional Past Surgical History / Comment(s): lt breast bx/ lt breast lumpectomy/ then mastectomy, injection into spine for siatic nerve pain, colonoscpy/polypectomy(benign), cyst removed from ovary Past Anesthesia/Blood Transfusion Reactions: No Reported Reaction Additional Past Anesthesia/Blood Transfusion Reaction / Comment(s): RECEIVED BLOOD-NO REACTIONS. Past Psychological History: Anxiety Additional Psychological History / Comment(s): related to health, takes ativan, patient currently living with daughter Smoking Status: Former smoker Past Alcohol Use History: Rare Additional Past Alcohol Use History / Comment(s): STARTED SMOKING AT AGE 14, QUIT NOVEMBER 2014 Past Drug Use History: None Reported - Past Family History Mother Family Medical History: Cancer Additional Family Medical History / Comment(s): pancreatic cancer Father Family Medical History: Cancer Additional Family Medical History / Comment(s): LUNG CANCER Sister(s) Family Medical History: Cancer Additional Family Medical History / Comment(s): patient states that her 2 sisters both had pancreatic cancer Medications and Allergies Home Medications Medication Instructions Recorded Confirmed Type Letrozole [Femara] 2.5 mg PO HS 01/16/14 08/20/16 History Albuterol Inhaler [Ventolin Hfa 2 puff INHALATION RT-QID PRN 11/04/14 08/20/16 History Inhaler] HYDROcodone/APAP 7.5-325MG [[place] 1 tab PO Q4H PRN 02/26/15 08/20/16 History 7.5-325] Palbociclib [Ibrance] 125 mg PO DIRECTED 02/26/15 08/20/16 History Albuterol Nebulized [Ventolin 2.5 mg INHALATION RT-QID PRN 04/02/15 08/20/16 History Nebulized] Acetaminophen Tab [Tylenol] 500 mg PO Q6H PRN 09/02/15 08/20/16 History Aspirin EC [Ecotrin Low Dose] 162 mg PO DAILY 09/02/15 08/20/16 History Pantoprazole [Protonix] 40 mg PO AC-BRKFST 09/08/15 08/20/16 History Cholecalciferol [Vitamin D3] 1,000 unit PO DAILY 12/15/15 08/20/16 History LORazepam [Ativan] 0.5 mg PO TID PRN 12/15/15 08/20/16 History Metoprolol Succinate [Toprol XL] 12.5 mg PO HS 12/15/15 08/20/16 History Budesonide/Formoterol Fumarate 2 puff INHALATION RT-BID 01/21/16 08/20/16 History [Symbicort 160-4.5 Mcg Inhaler] Furosemide [Lasix] 40 mg PO DAILY 03/11/16 08/20/16 History Potassium Chloride ER [K-Dur 20] 20 meq PO DAILY 03/11/16 08/20/16 History Fluticasone Nasal [place] [Flonase 1 spray EA NOSTRIL BID PRN 04/02/16 08/20/16 History Nasal [place]] Sertraline [Zoloft] 100 mg PO DAILY 04/02/16 08/20/16 History Cetirizine HCl [Zyrtec] 10 mg PO DAILY 08/14/16 08/20/16 History Umeclidinium [place] [Incruse 1 puff INHALATION RT-DAILY 08/14/16 08/20/16 History Ellipta] Cyclobenzaprine [Flexeril] 10 mg PO HS 08/20/16 08/20/16 History Allergies Allergy/AdvReac Type Severity Reaction Status Date / Time Sulfa (Sulfonamide Allergy Rash/Hives Verified 08/20/16 12:24 Antibiotics) Physical Exam Vitals: Vital Signs Temp Pulse Pulse Pulse Resp BP BP 08/21/16 08:15 97.5 F L 87 18 124/60 08/21/16 07:56 84 08/21/16 07:44 84 16 08/21/16 04:00 97.5 F L 76 18 113/57 08/20/16 23:41 97.6 F 93 16 117/68 08/20/16 20:00 96.8 F L 93 16 121/71 08/20/16 19:49 90 08/20/16 19:32 90 08/20/16 17:14 97.3 F L 100 18 127/75 08/20/16 15:54 98.2 F 90 20 105/68 Pulse Ox 08/21/16 08:15 98 08/21/16 07:56 08/21/16 07:44 94 L 08/21/16 04:00 97 08/20/16 23:41 92 L 08/20/16 20:00 94 L 08/20/16 19:49 08/20/16 19:32 08/20/16 17:14 92 L 08/20/16 15:54 97 Intake and Output 08/20/16 08/21/16 08/21/16 22:59 06:59 14:59 Intake Total 542.661 300.849 Output Total 300 200 Balance 542.661 -300 100.849 Intake: IV 368 Heparin Sodium,Porcine/ 208 D5w Pmx 25,000 unit In Dextrose/Water 1 500ml. bag @ 18 UNITS/KG/HR 26. 94 mls/hr IV .[id number] [facility] Rx#:[id number] Sodium Chloride 0.9% 1, 160 000 ml @ 20 mls/hr IV . Q24H [facility] Rx#:[id number] Intake, IV Titration 174.661 300.849 Amount Heparin Sodium,Porcine/ 174.661 300.849 D5w Pmx 25,000 unit In Dextrose/Water 1 500ml. bag @ 18 UNITS/KG/HR 26. 94 mls/hr IV .[id number] [facility] Rx#:[id number] Output: Urine 300 200 Other: Voiding Method Bedpan Bedpan Bedpan Weight 74.843 kg 75.5 kg General appearance: severe distress - EENT Eyes: anicteric sclerae, PERRLA, no ptosis, no scleral icterus, normal apperance ENT: hard of hearing, normal oropharynx, no thrush Ears: bilateral: normal - Neck Neck: no lymphadenopathy, normal ROM, no rigidity, no stridor, no thyromegaly Carotids: bilateral: upstroke delayed - Respiratory Respiratory: bilateral: diminished, dullness, rales, rhonchi, wheezing, prolonged expiration - Cardiovascular Rhythm: regular Heart sounds: normal: S1, S2 Abnormal Heart Sounds: systolic murmur - Gastrointestinal General gastrointestinal: normal bowel sounds, soft, no splenomegaly, no tenderness, no umbilical hernia, no ventral hernia - Integumentary Integumentary: normal, normal turgor - Neurologic Neurologic: CNII-XII intact - Musculoskeletal Musculoskeletal: generalized weakness, strength equal bilaterally - Psychiatric Psychiatric: A&O x's 3, appropriate affect, intact judgment & insight Results CBC & Chem 7: 08/20/16 10:59 08/21/16 06:19 Labs: Abnormal Lab Results - Last 24 Hours (Table) 08/20/16 08/21/16 08/21/16 Range/Units 21:51 06:19 06:19 APTT 72.0 H 87.4 H (22.0-30.0) sec BUN 52 H (7-17) mg/dL Creatinine 1.70 H (0.52-1.04) mg/dL Glucose 103 H (74-99) mg/dL Calcium 8.1 L (8.4-10.2) mg/dL Thrombosis Risk Factor Assmnt - DVT/VTE Prophylaxis DVT/VTE Prophylaxis: Pharmacologic Prophylaxis ordered - Choose All That Apply Each Factor Represents 1 point: Abnormal pulmonary function (COPD), Obesity ( BMI >25), Swollen legs (current) Each Risk Factor Represents 2 Points: Age 61-74 years Each Risk Factor Represents 3 Points: History of DVT/PE Thrombosis Risk Factor Assessment Total Risk Factor Score: 8 Thrombosis Risk Factor Assessment Level: High Risk Assessment and Plan Plan: 1. Acute bilateral lower extremity DVTs with previous history of same along with pulmonary embolism status post [place] filter in the past. Patient is currently on heparin drip. Consult with Dr. Kendal mercado. Plan for Lovenox to start tomorrow. Consult in place with oncology and cardiology and vascular surgery. 2. Redness of breath rule out pulmonary embolism. VQ scan order for today. Continue heparin drip. Consults in place. 3. Stage IIIc metastatic breast cancer. Currently on Incruse Ellipta, Ibrance and Femara. 4. Chronic hypoxemic respiratory failure secondary to COPD on home O2. Continue treatment as in paragraph #1. 5. History of bilateral pulmonary embolism as well as DVT of the right lower extremity. Post IVC filter since the patient developed GI bleed post Xarelto. 6. Hypertension and hypertensive cardiovascular disease. Continue Toprol-XL 25 mg orally once every day. 7. ALLERGIC rhinitis. Continue Flonase nasal spray twice every day. 8. Vitamin D deficiency. Continue vitamin D supplement once every day. 9. Anxiety generalized. Increase sertraline 200 mg orally once every day as well as Ativan 0.5 milligrams orally 3 times every day as needed. 10. DVT prophylaxis. Lovenox 40 mg subcutaneously every 24 hours. 11. GI prophylaxis. Continue Protonix 40 mg orally once every day. 12. Admitted to inpatient. Estimate a length of stay 2 midnights. CODE STATUS discussed with the patient: Full code Discharge plan: To be determined. Impression and plan of care have been directed as dictated by the signing physician. Keena Emerson nurse practitioner acting as scribe for signing physician. Time with Patient: Greater than 30
--- NOTE | 2016-08-21 12:14 | NM ---
EXAMINATION TYPE: NM pul vent and perfuse DATE OF EXAM: 08/21/2016 10:55 AM COMPARISON: Chest radiograph dated 08/20/2016. HISTORY: Shortness of breath and bilateral lower extremity emboli. TECHNIQUE: Utilizing inhalation of 70.8 mCi Tc 99m DTPA aerosol and intravenous injection of 5.2 mCi of Tc 99m MAA, ventilation and perfusion images are acquired post injection in multiple projections. FINDINGS: Radiotracer uptake predominates within the left lung and ventilation is uptake is contained centrally , which can relate to clumping of radiotracer making the exam technically an adequate. Given this saenz itation few scattered matched defects as well as nonsegmental mismatch defects are seen bilaterally. At least one large defect on the right, and additional moderate segment defect on the right immediate probability. IMPRESSION: Technically limited examination with clumping of radiotracer on ventilation images. Given this limita tion, there is intermediate probability for pulmonary embolus.
--- NOTE | 2016-08-21 14:06 | P.GSCN ---
History of Present Illness Consult date: 08/21/16 Reason for Consult: impression; 1. bilateral common femoral and femoral DVT, left popliteal DVT; left leg appears to be acute on chronic 2. metastatic breast carcinoma 3. S/P IVC filter placement 03/2015 after GI bleed; patient had been on rivaroxaban 4. severe oxygen dependent COPD with know right lung nodule; CXR from 08/20/2016 demonstrates retrocardiac infiltrate 5. intermediate probability V/ Q scan from 08/21/2016 6. Stage IIIB CKD plan; 1. agree with anticoagulation as discussed by DR. Kc 2. clinically, IVC filter seems to be patent since the left leg has acute onset edema and the right does not to verify patency of the IVC, patient would require a venous duplex of the IVC 3. to assess weather the IVC filter is "working", and there are no collaterals around the filter, a diagnosis of PE needs to be established. At this time, a V /Q scan performed on 08/21/2016 demonstrates an intermediate probability. The real question is weather establishing the diagnosis of PE would make a difference in management and would a contrast study be worth potential acute kidney injury? At this time, suggest that patient be fully anti-coagulated; if there is a recurrent episode of dyspnea that is not explained by worsening COPD, CHF, pneumonia, metastasis to lung, then it would be reasonable to obtain a contrast CTA of the chest. At this point would hold off and continue current management. 71 y/o woman, known history of Stage IV breast cancer with bony mets, severe oxygen dependent COPD, History of present illness: Reason for consult; is IVC filter working? impression; 1. bilateral common femoral and femoral DVT, left popliteal DVT; left leg appears to be acute on chronic 2. metastatic breast carcinoma 3. S/P IVC filter placement 03/2015 after GI bleed; patient had been on rivaroxaban 4. severe oxygen dependent COPD with know right lung nodule; CXR from 08/20/2016 demonstrates retrocardiac infiltrate 5. intermediate probability V/ Q scan from 08/21/2016 6. Stage IIIB CKD plan; 1. agree with anticoagulation as discussed by DR. Kc 2. clinically, IVC filter seems to be patent since the left leg has acute onset edema and the right does not to verify patency of the IVC, patient would require a venous duplex of the IVC 3. to assess weather the IVC filter is "working", and there are no collaterals around the filter, a diagnosis of PE needs to be established. At this time, a V /Q scan performed on 08/21/2016 demonstrates an intermediate probability. The real question is weather establishing the diagnosis of PE would make a difference in management and would a contrast study be worth potential acute kidney injury? At this time, suggest that patient be fully anti-coagulated; if there is a recurrent episode of dyspnea that is not explained by worsening COPD, CHF, pneumonia, metastasis to lung, then it would be reasonable to obtain a contrast CTA of the chest and risk MARIO. At this point would hold off obtaininng contrast study, continue current management, and follow clinically. 71 y/o woman, known history of Stage IV breast cancer with bony mets, severe oxygen dependent COPD, presented with bilateral leg pain and new onset edema of left leg. Has a history of pulmonary nodules of uncertain etiology, right lung mass. Underwent IVC filter placement in 03/2015 after GI bleed while on rivaroxaban. Patient currently on heparin drip for acute on chronic DVT left leg. Has had no other bleeds or thromboembolic events since 03/2015. Complaints of dyspnea; no fevers, chills, productive cough. Has not been on NOAC or enoxaperin since 03/2015. CMHx, PSHx, Habits, Meds; reviewed PE: A&Ox3 EXTR; femoral, popliteal, dorsalis pedis pedis pulses are palpable bialterally; posterior tibial pulses are not; left leg is edematous from inguinal ligament to foot; no signs of phlegmasia. Edema is pitting. Duplex and v/q scans reviewed and findings noted above 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, osteoporosis,sigmoid diverticulosis(per colonoscopy), chronic back pain , peripheral neuropathy d/t chemo tx's,HOME O2 3 LITERS N/C atc, ANEMIA HAD BLOOD TRANSFUSION, History of Any Multi-Drug Resistant Organisms: None Reported Past Surgical History: Appendectomy, Tonsillectomy Additional Past Surgical History / Comment(s): lt breast bx/ lt breast lumpectomy/ then mastectomy, injection into spine for siatic nerve pain, colonoscpy/polypectomy(benign), cyst removed from ovary Past Anesthesia/Blood Transfusion Reactions: No Reported Reaction Additional Past Anesthesia/Blood Transfusion Reaction / Comm: RECEIVED BLOOD-NO REACTIONS. Past Psychological History: Anxiety Additional Psychological History / Comment(s): related to health, takes ativan, patient currently living with daughter Smoking Status: Former smoker Past Alcohol Use History: Rare Additional Past Alcohol Use History / Comment(s): STARTED SMOKING AT AGE 14, QUIT NOVEMBER 2014 Past Drug Use History: None Reported - Past Family History Mother Family Medical History: Cancer Additional Family Medical History / Comment(s): pancreatic cancer Father Family Medical History: Cancer Additional Family Medical History / Comment(s): LUNG CANCER Sister(s) Family Medical History: Cancer Additional Family Medical History / Comment(s): patient states that her 2 sisters both had pancreatic cancer Medications and Allergies Home Medications Medication Instructions Recorded Confirmed Type Letrozole [Femara] 2.5 mg PO HS 01/16/14 08/20/16 History Albuterol Inhaler [Ventolin Hfa 2 puff INHALATION RT-QID PRN 11/04/14 08/20/16 History Inhaler] HYDROcodone/APAP 7.5-325MG [[place] 1 tab PO Q4H PRN 02/26/15 08/20/16 History 7.5-325] Palbociclib [Ibrance] 125 mg PO DIRECTED 02/26/15 08/20/16 History Albuterol Nebulized [Ventolin 2.5 mg INHALATION RT-QID PRN 04/02/15 08/20/16 History Nebulized] Acetaminophen Tab [Tylenol] 500 mg PO Q6H PRN 09/02/15 08/20/16 History Aspirin EC [Ecotrin Low Dose] 162 mg PO DAILY 09/02/15 08/20/16 History Pantoprazole [Protonix] 40 mg PO AC-BRKFST 09/08/15 08/20/16 History Cholecalciferol [Vitamin D3] 1,000 unit PO DAILY 12/15/15 08/20/16 History LORazepam [Ativan] 0.5 mg PO TID PRN 12/15/15 08/20/16 History Metoprolol Succinate [Toprol XL] 12.5 mg PO HS 12/15/15 08/20/16 History Budesonide/Formoterol Fumarate 2 puff INHALATION RT-BID 01/21/16 08/20/16 History [Symbicort 160-4.5 Mcg Inhaler] Furosemide [Lasix] 40 mg PO DAILY 03/11/16 08/20/16 History Potassium Chloride ER [K-Dur 20] 20 meq PO DAILY 03/11/16 08/20/16 History Fluticasone Nasal [place] [Flonase 1 spray EA NOSTRIL BID PRN 04/02/16 08/20/16 History Nasal [place]] Sertraline [Zoloft] 100 mg PO DAILY 04/02/16 08/20/16 History Cetirizine HCl [Zyrtec] 10 mg PO DAILY 08/14/16 08/20/16 History Umeclidinium [place] [Incruse 1 puff INHALATION RT-DAILY 08/14/16 08/20/16 History Ellipta] Cyclobenzaprine [Flexeril] 10 mg PO HS 08/20/16 08/20/16 History Allergies Allergy/AdvReac Type Severity Reaction Status Date / Time Sulfa (Sulfonamide Allergy Rash/Hives Verified 08/20/16 12:24 Antibiotics) Surgical - Exam Vital Signs Temp Pulse Resp BP Pulse Ox 98.6 F 86 16 124/60 93 L 08/20/16 10:24 08/20/16 10:24 08/20/16 10:24 08/20/16 10:24 08/20/16 10:24 Results - Labs 08/20/16 10:59 08/21/16 06:19 Abnormal Lab Results - Last 24 Hours (Table) 08/20/16 08/21/16 08/21/16 Range/Units 21:51 06:19 06:19 APTT 72.0 H 87.4 H (22.0-30.0) sec BUN 52 H (7-17) mg/dL Creatinine 1.70 H (0.52-1.04) mg/dL Glucose 103 H (74-99) mg/dL Calcium 8.1 L (8.4-10.2) mg/dL Diabetes panel 08/21/16 Range/Units 06:19 Sodium 137 (137-145) mmol/L Potassium 3.8 (3.5-5.1) mmol/L Chloride 101 (98-107) mmol/L Carbon Dioxide 25 (22-30) mmol/L BUN 52 H (7-17) mg/dL Creatinine 1.70 H (0.52-1.04) mg/dL Glucose 103 H (74-99) mg/dL Calcium 8.1 L (8.4-10.2) mg/dL Calcium panel 08/21/16 Range/Units 06:19 Calcium 8.1 L (8.4-10.2) mg/dL Pituitary panel 08/21/16 Range/Units 06:19 Sodium 137 (137-145) mmol/L Potassium 3.8 (3.5-5.1) mmol/L Chloride 101 (98-107) mmol/L Carbon Dioxide 25 (22-30) mmol/L BUN 52 H (7-17) mg/dL Creatinine 1.70 H (0.52-1.04) mg/dL Glucose 103 H (74-99) mg/dL Calcium 8.1 L (8.4-10.2) mg/dL Adrenal panel 08/21/16 Range/Units 06:19 Sodium 137 (137-145) mmol/L Potassium 3.8 (3.5-5.1) mmol/L Chloride 101 (98-107) mmol/L Carbon Dioxide 25 (22-30) mmol/L BUN 52 H (7-17) mg/dL Creatinine 1.70 H (0.52-1.04) mg/dL Glucose 103 H (74-99) mg/dL Calcium 8.1 L (8.4-10.2) mg/dL
[2016-08-21] MEDS: SODIUM CHLORIDE 0.9% 1,000 ML IV SCH (15:07)
--- NOTE | 2016-08-21 15:09 | P.CRDCN ---
History of Present Illness Consult date: 08/21/16 Chief complaint: Shortness of breath/bilateral lower extremity swelling History of present illness: This is a pleasant 71-year-old female patient who sees Dr. Li in the office as an outpatient presented to the emergency room complaining of bilateral lower extremity swelling as well as shortness of breath. The patient is known to have history of breast cancer and she underwent radiation therapy and chemotherapy in the past. Also she is known to have history of DVT/PE, status post IVC filter, as well as known to have COPD and chronic respiratory failure. She was in her usual state of health until this past Monday when she noticed swelling involving both thighs. It was more prominent on the left side than the right side. Beside that she noticed worsening dyspnea. She has chronic exertional dyspnea related to COPD and chronic respiratory failure but the dyspnea last few days has been more prominent. She did not have any symptoms of chest pain or discomfort. She presented to the emergency room where she was slightly hypoxic and also tachycardic. A venous duplex study was performed and showed bilateral DVT/acute versus acute on chronic. She underwent a VQ scan which showed intermediate priority for PE. The patient was initiated on anticoagulation with heparin. In the past she was started on oral anticoagulation using one of the newer agents but she developed bleeding and she had IVC filter placed at that point. We get involved in the care of the patient because her cardiac enzymes were checked and came in to be slightly abnormal. The EKG did not show any significant ST or T-wave abnormalities consistent with ischemia and more importantly the patient did not have any symptoms of chest pain or discomfort. The patient abnormal cardiac enzymes is likely secondary to type II VT related to hypoxia. Currently the patient is on heparin IV. Also she is on aspirin and she is on metoprolol. We will continue the current medical treatment obtain an echocardiogram was Doppler. 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, osteoporosis,sigmoid diverticulosis(per colonoscopy), chronic back pain , peripheral neuropathy d/t chemo tx's,HOME O2 3 LITERS N/C atc, ANEMIA HAD BLOOD TRANSFUSION, History of Any Multi-Drug Resistant Organisms: None Reported Past Surgical History: Appendectomy, Tonsillectomy Additional Past Surgical History / Comment(s): lt breast bx/ lt breast lumpectomy/ then mastectomy, injection into spine for siatic nerve pain, colonoscpy/polypectomy(benign), cyst removed from ovary Past Anesthesia/Blood Transfusion Reactions: No Reported Reaction Additional Past Anesthesia/Blood Transfusion Reaction / Comment(s): RECEIVED BLOOD-NO REACTIONS. Past Psychological History: Anxiety Additional Psychological History / Comment(s): related to health, takes ativan, patient currently living with daughter Smoking Status: Former smoker Past Alcohol Use History: Rare Additional Past Alcohol Use History / Comment(s): STARTED SMOKING AT AGE 14, QUIT NOVEMBER 2014 Past Drug Use History: None Reported - Past Family History Mother Family Medical History: Cancer Additional Family Medical History / Comment(s): pancreatic cancer Father Family Medical History: Cancer Additional Family Medical History / Comment(s): LUNG CANCER Sister(s) Family Medical History: Cancer Additional Family Medical History / Comment(s): patient states that her 2 sisters both had pancreatic cancer Medications and Allergies Home Medications Medication Instructions Recorded Confirmed Type Letrozole [Femara] 2.5 mg PO HS 01/16/14 08/20/16 History Albuterol Inhaler [Ventolin Hfa 2 puff INHALATION RT-QID PRN 11/04/14 08/20/16 History Inhaler] HYDROcodone/APAP 7.5-325MG [[place] 1 tab PO Q4H PRN 02/26/15 08/20/16 History 7.5-325] Palbociclib [Ibrance] 125 mg PO DIRECTED 02/26/15 08/20/16 History Albuterol Nebulized [Ventolin 2.5 mg INHALATION RT-QID PRN 04/02/15 08/20/16 History Nebulized] Acetaminophen Tab [Tylenol] 500 mg PO Q6H PRN 09/02/15 08/20/16 History Aspirin EC [Ecotrin Low Dose] 162 mg PO DAILY 09/02/15 08/20/16 History Pantoprazole [Protonix] 40 mg PO AC-BRKFST 09/08/15 08/20/16 History Cholecalciferol [Vitamin D3] 1,000 unit PO DAILY 12/15/15 08/20/16 History LORazepam [Ativan] 0.5 mg PO TID PRN 12/15/15 08/20/16 History Metoprolol Succinate [Toprol XL] 12.5 mg PO HS 12/15/15 08/20/16 History Budesonide/Formoterol Fumarate 2 puff INHALATION RT-BID 01/21/16 08/20/16 History [Symbicort 160-4.5 Mcg Inhaler] Furosemide [Lasix] 40 mg PO DAILY 03/11/16 08/20/16 History Potassium Chloride ER [K-Dur 20] 20 meq PO DAILY 03/11/16 08/20/16 History Fluticasone Nasal [place] [Flonase 1 spray EA NOSTRIL BID PRN 04/02/16 08/20/16 History Nasal [place]] Sertraline [Zoloft] 100 mg PO DAILY 04/02/16 08/20/16 History Cetirizine HCl [Zyrtec] 10 mg PO DAILY 08/14/16 08/20/16 History Umeclidinium [place] [Incruse 1 puff INHALATION RT-DAILY 08/14/16 08/20/16 History Ellipta] Cyclobenzaprine [Flexeril] 10 mg PO HS 08/20/16 08/20/16 History Allergies Allergy/AdvReac Type Severity Reaction Status Date / Time Sulfa (Sulfonamide Allergy Rash/Hives Verified 08/20/16 12:24 Antibiotics) Physical Exam Vitals: Vital Signs Temp Pulse Pulse Pulse Resp BP BP 08/21/16 12:01 87 08/21/16 12:00 97 F L 94 18 133/73 08/21/16 11:47 87 08/21/16 08:15 97.5 F L 87 18 124/60 08/21/16 07:56 84 08/21/16 07:44 84 16 08/21/16 04:00 97.5 F L 76 18 113/57 08/20/16 23:41 97.6 F 93 16 117/68 08/20/16 20:00 96.8 F L 93 16 121/71 08/20/16 19:49 90 08/20/16 19:32 90 08/20/16 17:14 97.3 F L 100 18 127/75 08/20/16 15:54 98.2 F 90 20 105/68 Pulse Ox 08/21/16 12:01 08/21/16 12:00 99 08/21/16 11:47 08/21/16 08:15 98 08/21/16 07:56 08/21/16 07:44 94 L 08/21/16 04:00 97 08/20/16 23:41 92 L 08/20/16 20:00 94 L 08/20/16 19:49 08/20/16 19:32 08/20/16 17:14 92 L 08/20/16 15:54 97 Intake and Output 08/21/16 08/21/16 08/21/16 06:59 14:59 22:59 Intake Total 644.849 Output Total 300 200 Balance -300 444.849 Intake: IV 344 Heparin Sodium,Porcine/ 184 D5w Pmx 25,000 unit In Dextrose/Water 1 500ml. bag @ 18 UNITS/KG/HR 26. 94 mls/hr IV .[id number] [facility] Rx#:[id number] Sodium Chloride 0.9% 1, 160 000 ml @ 20 mls/hr IV . Q24H [facility] Rx#:[id number] Intake, IV Titration 300.849 Amount Heparin Sodium,Porcine/ 300.849 D5w Pmx 25,000 unit In Dextrose/Water 1 500ml. bag @ 18 UNITS/KG/HR 26. 94 mls/hr IV .[id number] [facility] Rx#:[id number] Output: Urine 300 200 Other: Voiding Method Bedpan Bedpan Weight 75.5 kg - Constitutional General appearance: no acute distress - Respiratory Respiratory: bilateral: diminished - Cardiovascular Rhythm: regular Heart sounds: normal: S1, S2 Results 08/20/16 10:59 08/21/16 06:19 Coagulation 08/20/16 08/21/16 08/21/16 Range/Units 21:51 06:19 14:19 APTT 72.0 H 87.4 H 65.4 H (22.0-30.0) sec Comprehensive Metabolic Panel 08/21/16 Range/Units 06:19 Sodium 137 (137-145) mmol/L Potassium 3.8 (3.5-5.1) mmol/L Chloride 101 (98-107) mmol/L Carbon Dioxide 25 (22-30) mmol/L BUN 52 H (7-17) mg/dL Creatinine 1.70 H (0.52-1.04) mg/dL Glucose 103 H (74-99) mg/dL Calcium 8.1 L (8.4-10.2) mg/dL Current Medications Generic Name Dose Route Start Last Admin Trade Name Freq PRN Reason Stop Dose Admin Acetaminophen 500 mg 08/20/16 15:37 Tylenol Tab PO Q6H PRN Pain Hydrocodone Bitart/Acetaminophen 1 each 08/20/16 15:37 08/21/16 03:39 [place] 7.5-325 PO 1 each Q4H PRN Administration Pain Albuterol Sulfate 2.5 mg 08/20/16 15:37 08/21/16 11:46 Ventolin Nebulized INHALATION 2.5 mg RT-QID PRN Administration Shortness Of Breath Artificial Tears 1 drops 08/20/16 20:30 Artificial Tear Drops BOTH EYES QID PRN Dry Eye(s) Aspirin 162 mg 08/21/16 09:00 08/21/16 08:15 Aspirin PO 162 mg DAILY [facility] Administration Budesonide/Formoterol Fumarate 2 puff 08/20/16 20:00 08/21/16 07:44 Symbicort 160-4.5 Mcg Inhaler INHALATION 2 puff RT-BID [facility] Administration Cholecalciferol 1,000 unit 08/21/16 12:00 08/21/16 08:16 Vitamin D3 PO 1,000 unit 1200 [facility] Administration Cyclobenzaprine HCl 10 mg 08/20/16 21:00 08/20/16 20:45 Flexeril PO 10 mg HS [facility] Administration Fluticasone Propionate 1 spray 08/20/16 15:37 Flonase Nasal [place] EA NOSTRIL BID PRN Allergy Symptoms Furosemide 40 mg 08/20/16 21:00 08/21/16 08:15 Lasix IV 40 mg Q12HR [facility] Administration Sodium Chloride 1,000 mls @ 20 mls/hr 08/20/16 15:45 08/20/16 16:18 Saline 0.9% IV Not Given .Q24H [facility] Heparin Sodium/Dextrose 25,000 500 mls @ 26.94 mls/hr 08/20/16 15:45 09:42 unit/ IV Solution IV 15.98 units/kg/hr .[id number] [facility] 23.91 mls/hr Protocol Administration 18 UNITS/KG/HR Letrozole 2.5 mg 08/20/16 21:00 08/20/16 20:45 Femara PO 2.5 mg HS [facility] Administration Loratadine 10 mg 08/21/16 09:00 08/21/16 08:15 Claritin PO 10 mg DAILY [facility] Administration Lorazepam 0.5 mg 08/20/16 15:37 08/21/16 08:43 Ativan PO 0.5 mg TID PRN Administration Anxiety Magnesium Hydroxide 2,400 mg 08/21/16 09:11 Milk Of Magnesia PO BID PRN Constipation Metoprolol Succinate 12.5 mg 08/20/16 21:00 08/20/16 20:45 Toprol Xl PO 12.5 mg HS [facility] Administration Miscellaneous Information 1 each 08/20/16 14:40 Rx Info: Iv Contrast Was Given MISCELLANE 08/22/16 14:40 DAILY PRN Per Protocol Naloxone HCl 0.2 mg 08/20/16 15:31 Narcan IV Q2M PRN Opioid Reversal Ibrance 125 Mg 1 each 08/20/16 21:00 08/20/16 20:46 Capsule PO 1 each DIRECTED [facility] Administration Pantoprazole Sodium 40 mg 08/20/16 21:00 08/21/16 08:15 Protonix IV 40 mg BID [facility] Administration Potassium Chloride 20 meq 08/21/16 09:00 08/21/16 08:15 K-Dur 20 PO 20 meq DAILY [facility] Administration Prednisone 20 mg 08/21/16 09:00 08/21/16 08:16 PO 20 mg DAILY [facility] Administration Sertraline HCl 100 mg 08/21/16 09:00 08/21/16 08:16 Zoloft PO 100 mg DAILY [facility] Administration Tiotropium [place] 1 puff 08/21/16 08:00 Spiriva INHALATION RT-DAILY [facility] Intake and Output 08/21/16 08/21/16 08/21/16 06:59 14:59 22:59 Intake Total 644.849 Output Total 300 200 Balance -300 444.849 Intake: IV 344 Heparin Sodium,Porcine/ 184 D5w Pmx 25,000 unit In Dextrose/Water 1 500ml. bag @ 18 UNITS/KG/HR 26. 94 mls/hr IV .[id number] [facility] Rx#:[id number] Sodium Chloride 0.9% 1, 160 000 ml @ 20 mls/hr IV . Q24H [facility] Rx#:[id number] Intake, IV Titration 300.849 Amount Heparin Sodium,Porcine/ 300.849 D5w Pmx 25,000 unit In Dextrose/Water 1 500ml. bag @ 18 UNITS/KG/HR 26. 94 mls/hr IV .[id number] [facility] Rx#:[id number] Output: Urine 300 200 Other: Voiding Method Bedpan Bedpan Weight 75.5 kg 08/21/16 06:19 Assessment and Plan Plan: Assessment #1 bilateral DVT #2 possible PE #3 mildly abnormal cardiac enzymes #4 chronic respiratory failure #5 history of breast cancer Plan #1 the abnormal cardiac enzymes is likely secondary to type II VT #2 I will consider medical treatment at this point of time. The patient is on heparin, aspirin, and beta sandra and we will continue that #3 obtain echocardiogram with Doppler #4 follow-up with the patient
[2016-08-21] MEDS: TIOTROPIUM 18 MCG/PUFF INHALER INHALATION SCH (20:19)
[2016-08-21] MEDS: IBRANCE 125 MG PO SCH (20:36)
[2016-08-21] MEDS: METOPROLOL SUCCINATE (ER) 25 MG TAB.ER.24H PO SCH (20:40)
[2016-08-21] MEDS: LETROZOLE 2.5 MG TAB PO SCH (20:41)
[2016-08-21] MEDS: CYCLOBENZAPRINE 10 MG TAB PO SCH (20:41)
[2016-08-22] MEDS: HEPARIN SODIUM,PORCINE/D5W PMX 25,000 UNIT in DEXTROSE/WATER 1 500ML.BAG IV SCH (04:09)
[2016-08-22 05:48] LABS: Glucose,Whole Blood 101 mg/dL (75-99)
[2016-08-22 06:57] LABS: Basophils % (A) 1 %; CH 35.1; CHCM 33.9; Eosinophils # (A) 0.1 k/uL (0-0.7); Eosinophils % (A) 1 %; HCT 28.3 % (34.0-46.0); HDW 2.97; HGB 9.4 gm/dL (11.4-16.0); Luc # (Auto) 0.09; Luc % (Auto) 2; Lymphocytes # (A) 0.8 k/uL (1.0-4.8); Lymphocytes % (A) 14 %; MCH 34.7 pg (25.0-35.0); MCHC 33.3 g/dL (31.0-37.0); MCV 104.1 fL (80.0-100.0); Macrocytosis Moderate; Mean Platelet Volume 7.6; Monocytes # (A) 0.2 k/uL (0-1.0); Monocytes % (A) 4 %; Neutrophils # (A) 4.2 k/uL (1.3-7.7); Neutrophils % (A) 78 %; RBC 2.72 m/uL (3.80-5.40); RDW 15.4 % (11.5-15.5); WBC 5.3 k/uL (3.8-10.6); WBC (Perox) 5.14
[2016-08-22] MEDS: HYDROcodone/APAP 7.5-325MG 1 EACH TAB PO PRN ×2 (08:18→14:54)
[2016-08-22] MEDS: PANTOPRAZOLE 40 MG/10 ML VIAL IV SCH (08:19)
[2016-08-22] MEDS: FUROSEMIDE 10 MG/ML 4 ML VIAL IV SCH (08:19)
[2016-08-22] MEDS: LORazepam 0.5 MG TAB PO PRN ×2 (08:19→18:06)
[2016-08-22] MEDS: POTASSIUM CHLORIDE ER 20 MEQ TAB.ER PO SCH (08:20)
[2016-08-22] MEDS: LORATADINE 10 MG TAB PO SCH (08:20)
[2016-08-22] MEDS: ASPIRIN 81 MG CHEW PO SCH (08:21)
[2016-08-22] MEDS: predniSONE 20 MG TAB PO SCH (08:21)
[2016-08-22] MEDS: SERTRALINE 100 MG TAB PO SCH (08:21)
[2016-08-22 08:34] LABS: Calcium 7.9 mg/dL (8.4-10.2); Potassium 3.7 mmol/L (3.5-5.1); Total Bilirubin 0.5 mg/dL (0.2-1.3); Total Protein 6.2 g/dL (6.3-8.2)
[2016-08-22] MEDS: ALBUTEROL NEBULIZED 2.5 MG/3 ML INHALATION PRN ×4 (08:38→19:44)
[2016-08-22] MEDS: SYMBICORT 160-4.5 MCG INHALER INHALATION SCH ×2 (08:38→19:45)
[2016-08-22] MEDS ORDERED: TIOTROPIUM 18 MCG/PUFF INHALER INHALATION SCH (09:20)
[2016-08-22] MEDS: TIOTROPIUM 18 MCG/PUFF INHALER INHALATION SCH (09:46)
[2016-08-22] MEDS ORDERED: HYDROmorphone 1 MG/ML 1 ML SYRINGE IVP PRN (11:12)
[2016-08-22] MEDS: CHOLECALCIFEROL 1,000 UNIT TAB PO SCH (11:26)
--- NOTE | 2016-08-22 13:00 | P.PN ---
Subjective This is a pleasant 71-year-old female patient who sees Dr. Li in the office as an outpatient presented to the emergency room complaining of bilateral lower extremity swelling as well as shortness of breath.The patient is known to have history of breast cancer and she underwent radiation therapy and chemotherapy in the past. Also she is known to have history of DVT/PE, status post IVC filter, as well as known to have COPD and chronic respiratory failure. She was in her usual state of health until this past Monday when she noticed swelling involving both thighs. It was more prominent on the left side than the right side. Beside that she noticed worsening dyspnea. She has chronic exertional dyspnea related to COPD and chronic respiratory failure but the dyspnea last few days has been more prominent. She did not have any symptoms of chest pain or discomfort.She presented to the emergency room where she was slightly hypoxic and also tachycardic.A venous duplex study was performed and showed bilateral DVT/acute versus acute on chronic.She underwent a VQ scan which showed intermediate priority for PE.The patient was initiated on anticoagulation with heparin.In the past she was started on oral anticoagulation using one of the newer agents but she developed bleeding and she had IVC filter placed at that point.We get involved in the care of the patient because her cardiac enzymes were checked and came in to be slightly abnormal.The EKG did not show any significant ST or T-wave abnormalities consistent with ischemia and more importantly the patient did not have any symptoms of chest pain or discomfort. Ada was seen and examined today, continues to be on IV heparin. Breathing is overall stable. Hemoglobin 9.4, creatinine 1.6 today. Potassium 3.7. Echo with Doppler study is pending. Ada appears to be diuresing well on IV Lasix however the rate is not reflective of this. Recommend to continue current dose of IV Lasix. Echo lytes BUN and creatinine in the morning. Objective - Vital Signs Vital signs: Vital Signs Temp 97.3 F L 08/22/16 11:50 Pulse 88 08/22/16 12:00 Resp 22 08/22/16 11:50 BP 122/64 08/22/16 11:50 Pulse Ox 91 L 08/22/16 11:50 Intake & Output 08/21/16 08/22/16 08/22/16 18:59 06:59 18:59 Intake Total 409.997 9810.62 118 Output Total 800 1000 Balance -155.151 507.62 118 Weight 79.3 kg Intake: IV 344 586.48 Heparin Sodium,Porcine/ 184 426.48 D5w Pmx 25,000 unit In Dextrose/Water 1 500ml. bag @ 18 UNITS/KG/HR 26. 94 mls/hr IV .[id number] [facility] Rx#:[id number] Sodium Chloride 0.9% 1, 160 160 000 ml @ 20 mls/hr IV . Q24H [facility] Rx#:[id number] Intake, IV Titration 300.849 441.14 Amount Heparin Sodium,Porcine/ 300.849 441.14 D5w Pmx 25,000 unit In Dextrose/Water 1 500ml. bag @ 18 UNITS/KG/HR 26. 94 mls/hr IV .[id number] [facility] Rx#:[id number] Oral 480 118 Output: Urine 800 1000 Other: Voiding Method Bedpan Bedpan # Voids 2 - Exam PHYSICAL EXAMINATION: HEENT: Head is atraumatic, normocephalic. Pupils equal, round. Neck is supple. There is no elevated jugular venous pressure. HEART EXAMINATION: Heart S1, S2 normal. No murmur or gallop heard. CHEST EXAMINATION: Revealed diminished air entry bilaterally. ABDOMEN: Soft, nontender. Bowel sounds are heard. No organomegaly noted. EXTREMITIES: 2+ peripheral pulses with trace evidence of peripheral edema and no calf tenderness noted. NEUROLOGIC patient is awake, alert and oriented -3. . - Labs CBC & Chem 7: 08/22/16 05:43 08/22/16 05:43 Labs: Abnormal Lab Results - Last 24 Hours (Table) 08/21/16 08/22/16 08/22/16 Range/Units 14:19 05:43 05:43 RBC 2.72 L (3.80-5.40) m/uL Hgb 9.4 L (11.4-16.0) gm/dL Hct 28.3 L (34.0-46.0) % MCV 104.1 H (80.0-100.0) fL Lymphocytes # 0.8 L (1.0-4.8) k/uL APTT 65.4 H (22.0-30.0) sec BUN 45 H (7-17) mg/dL Creatinine 1.62 H (0.52-1.04) mg/dL POC Glucose (mg/dL) (75-99) mg/dL Calcium 7.9 L (8.4-10.2) mg/dL Total Protein 6.2 L (6.3-8.2) g/dL 08/22/16 08/22/16 Range/Units 05:43 05:46 RBC (3.80-5.40) m/uL Hgb (11.4-16.0) gm/dL Hct (34.0-46.0) % MCV (80.0-100.0) fL Lymphocytes # (1.0-4.8) k/uL APTT 52.8 H (22.0-30.0) sec BUN (7-17) mg/dL Creatinine (0.52-1.04) mg/dL POC Glucose (mg/dL) 101 H (75-99) mg/dL Calcium (8.4-10.2) mg/dL Total Protein (6.3-8.2) g/dL Assessment and Plan (1) DVT (deep venous thrombosis) Status: Acute (2) Pulmonary embolism Status: Acute (3) Elevated troponin Status: Acute (4) Diastolic CHF, acute on chronic Status: Acute Plan: From cardiology's perspective, we will recommend to continue IV heparin, continue IV Lasix for 24 hours, check lytes BUN and creatinine in the morning. DNP note has been reviewed, I agree with a documented findings and plan of care. Patient was seen and examined.
--- NOTE | 2016-08-22 13:11 | P.PN ---
Subjective This is a 71-year-old female patient of Dr. 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 She had neoadjuvant chemotherapy followed by mastectomy in July 2008 followed by consolidative radiation therapy. She was started on Femara in October 2008. In January 2014 she presented with left-sided low back pain along with weight loss. Weight loss continued over the next year and in 12/30, a PET scan was ordered revealing evidence of metastasis in the bones, most prominently at T11 as well as in the pelvic girdle. At that time the patient did have lung nodules, with the most prominent lesion being about 6 mm in the right posterolateral lung base. She also had liver nodules. These were negative on PET scan. She was switched to Ibrance and Femara, as well as Xgeva. In 03/01, she developed right lower extremity DVT and bilateral PE and was started on Xarelto. Subsequently, she developed left-sided neurologic deficit due to a CVA and aspirin was added. In mid 03/31 she developed GI bleeding. Xarelto was stopped and an IVC filter placed. She continued on the same regimen for her breast cancer, without any evidence of progression. The patient has significant COPD and has had recurrent admissions for COPD exacerbation. Repeat CTA showed increase in size of the right posterolateral a lung nodule, which is now 1.5 cm. A couple of lesions noted in the liver, the largest 1.12.4 cm in the medial segment of the left lobe. Her most recent hospitalization was March 2016 which time she was treated for acute respiratory failure due to acute exacerbation of COPD and diastolic heart failure. Dr. Mathur is her pulmonary physician and Dr. Garcia is following her for oncology and she is currently on Incruse Ellipta, Ibrance, Femara. Patient states she developed lower extremity edema more so on the left leg and came back into [facility] emergency center. A venous Doppler was positive for bilateral DVTs in both legs. It showed nonocclusive thrombus in the right and left common femoral veins and popliteal veins. Patient was started on a heparin drip and admitted to the selective care unit. As morning she developed shortness of breath. She was unable to go for a CAT scan of the chest due to renal function. She is on IV Lasix and DuoNeb treatments. A V/Q scan has been scheduled and patient admitted to the selective care unit and consults in place with Dr. Edmonds, oncology, cardiology and we have added in consult with Dr. Hatch regarding [place] filter. 08/22: VQ scan shows intermediate probability for pulmonary embolism. Patient has been seen by Dr. Li and acute coronary syndrome ruled out. Echocardiogram has been ordered and pending. Patient has also been seen by Dr. Hatch and Dr. Edmonds. Patient to be switched over to subcutaneous Lovenox. Consult in place for oncology. Objective - Vital Signs Vital signs: Vital Signs Temp 97.3 F L 08/22/16 11:50 Pulse 88 08/22/16 12:00 Resp 22 08/22/16 11:50 BP 122/64 08/22/16 11:50 Pulse Ox 91 L 08/22/16 11:50 Intake & Output 08/21/16 08/22/16 08/22/16 18:59 06:59 18:59 Intake Total 340.729 9355.62 118 Output Total 800 1000 Balance -155.151 507.62 118 Weight 79.3 kg Intake: IV 344 586.48 Heparin Sodium,Porcine/ 184 426.48 D5w Pmx 25,000 unit In Dextrose/Water 1 500ml. bag @ 18 UNITS/KG/HR 26. 94 mls/hr IV .[id number] [facility] Rx#:[id number] Sodium Chloride 0.9% 1, 160 160 000 ml @ 20 mls/hr IV . Q24H [facility] Rx#:[id number] Intake, IV Titration 300.849 441.14 Amount Heparin Sodium,Porcine/ 300.849 441.14 D5w Pmx 25,000 unit In Dextrose/Water 1 500ml. bag @ 18 UNITS/KG/HR 26. 94 mls/hr IV .[id number] [facility] Rx#:[id number] Oral 480 118 Output: Urine 800 1000 Other: Voiding Method Bedpan Bedpan # Voids 2 - Exam General appearance: severe distress - EENT Eyes: anicteric sclerae, PERRLA, no ptosis, no scleral icterus, normal apperance ENT: hard of hearing, normal oropharynx, no thrush Ears: bilateral: normal - Neck Neck: no lymphadenopathy, normal ROM, no rigidity, no stridor, no thyromegaly Carotids: bilateral: upstroke delayed - Respiratory Respiratory: bilateral: diminished, dullness, rales, rhonchi, wheezing, prolonged expiration - Cardiovascular Rhythm: regular Heart sounds: normal: S1, S2 Abnormal Heart Sounds: systolic murmur - Gastrointestinal General gastrointestinal: normal bowel sounds, soft, no splenomegaly, no tenderness, no umbilical hernia, no ventral hernia - Integumentary Integumentary: normal, normal turgor - Neurologic Neurologic: CNII-XII intact - Musculoskeletal Musculoskeletal: generalized weakness, strength equal bilaterally - Psychiatric Psychiatric: A&O x's 3, appropriate affect, intact judgment & insight - Labs CBC & Chem 7: 08/22/16 05:43 08/22/16 05:43 Labs: Abnormal Lab Results - Last 24 Hours (Table) 08/21/16 08/22/16 08/22/16 Range/Units 14:19 05:43 05:43 RBC 2.72 L (3.80-5.40) m/uL Hgb 9.4 L (11.4-16.0) gm/dL Hct 28.3 L (34.0-46.0) % MCV 104.1 H (80.0-100.0) fL Lymphocytes # 0.8 L (1.0-4.8) k/uL APTT 65.4 H (22.0-30.0) sec BUN 45 H (7-17) mg/dL Creatinine 1.62 H (0.52-1.04) mg/dL POC Glucose (mg/dL) (75-99) mg/dL Calcium 7.9 L (8.4-10.2) mg/dL Total Protein 6.2 L (6.3-8.2) g/dL 08/22/16 08/22/16 Range/Units 05:43 05:46 RBC (3.80-5.40) m/uL Hgb (11.4-16.0) gm/dL Hct (34.0-46.0) % MCV (80.0-100.0) fL Lymphocytes # (1.0-4.8) k/uL APTT 52.8 H (22.0-30.0) sec BUN (7-17) mg/dL Creatinine (0.52-1.04) mg/dL POC Glucose (mg/dL) 101 H (75-99) mg/dL Calcium (8.4-10.2) mg/dL Total Protein (6.3-8.2) g/dL Assessment and Plan Plan: 1. Acute bilateral lower extremity DVTs with previous history of same along with pulmonary embolism status post [place] filter in the past. Patient is currently on heparin drip will be discontinued and Lovenox started. Consult in place with pulmonary, oncology, cardiology and vascular surgery. 2. Shortness of breath of breath intermediate probability for pulmonary embolism. Lovenox twice daily. 3. Stage IIIc metastatic breast cancer. Currently on Incruse Ellipta, Ibrance and Femara. 4. Chronic hypoxemic respiratory failure secondary to COPD on home O2. Continue treatment as in paragraph #1. 5. History of bilateral pulmonary embolism as well as DVT of the right lower extremity. Post IVC filter since the patient developed GI bleed post Xarelto. 6. Hypertension and hypertensive cardiovascular disease. Continue Toprol-XL 25 mg orally once every day. 7. ALLERGIC rhinitis. Continue Flonase nasal spray twice every day. 8. Vitamin D deficiency. Continue vitamin D supplement once every day. 9. Anxiety generalized. Sertraline 100 mg daily and Ativan 0.5 mg 3 times daily as needed. 10. DVT prophylaxis. Lovenox 40 mg subcutaneously twice daily. 11. GI prophylaxis. Continue Protonix 40 mg orally once every day. CODE STATUS discussed with the patient: Full code Discharge plan: To be determined. Recommended subacute rehab with patient. Physical therapy consult added. Impression and plan of care have been directed as dictated by the signing physician. Keena Emerson nurse practitioner acting as scribe for signing physician. Time with Patient: Greater than 30
[2016-08-22] MEDS ORDERED: ENOXAPARIN 80 MG/0.8 ML SYRINGE SQ SCH (13:15)
[2016-08-22] MEDS: SODIUM CHLORIDE 0.9% 1,000 ML IV SCH (14:44)
--- NOTE | 2016-08-22 16:57 | PN ---
This patient is a 71-year-old female seen by my partner for acute on chronic DVT involving both lower extremities. She had an indeterminate VQ scan. The recommendation was to start her on heparin and transition her to Lovenox. Anyway, the patient does have a history of severe COPD, Gold stage III, and multiple other medical comorbidities, including metastatic breast cancer, rheumatoid arthritis, multiple pulmonary nodules, all of which could represent malignant disease or be related to rheumatoid nodules. She has a history of upper GI bleed, diverticulosis, peripheral neuropathy, osteoporosis and a history of pulmonary embolism. The patient is doing okay today. No particular complaints or issues. She did have some shortness of breath on admission, but that seems to have dissipated. I see her in the office. She previously was on blood thinners but developed GI bleed, and we recommended filter placement, which she had done. The patient is doing a bit better. Current vital signs are reviewed. Temperature 97.3, heart rate 80, respiratory rate 22, blood pressure 122/64, mean 83. Three-liter saturation 91%. She appears in no acute distress. HEENT examination is grossly unremarkable. Mucous membranes are moist. No oral lesions. Neck is supple; full range of motion. No adenopathy or thyromegaly. Neck veins are flat. Cardiovascular examination reveals regular rhythm and rate. S1, S2 normal. Lungs reveal a few scattered rhonchi. No wheezes or crackles. ABDOMEN: Soft. Bowel sounds are heard. Extremities are intact. There is some lower extremity edema. Some tenderness on palpation, particularly through the thigh and calf area. Labs are reviewed. White count 5.3, hemoglobin 9.4, hematocrit 28.3, platelet count 181,000. PTT is 52.8. Sodium, potassium, chloride and CO2 all normal. BUN and creatinine were 45 and 1.62. The rest of her labs are reviewed. Currently the patient is on appropriate medications. They were started by my partner yesterday. She is currently from the pulmonary standpoint on albuterol, Spiriva and Symbicort. She is also on IV heparin. She is also on a small dose of prednisone. ASSESSMENT: 1. Acute on chronic deep venous thrombosis involving both lower extremities. 2. Possible pulmonary embolism, although V/Q scan was indeterminate. 3. History of Gold stage III chronic obstructive pulmonary disease. 4. History of metastatic breast cancer. 5. History of rheumatoid arthritis. 6. History of multiple pulmonary nodules, which could be related to either of above 2 processes. 7. History of upper gastrointestinal bleed with diverticulosis. 8. History of peripheral neuropathy. 9. Osteoporosis. 10. History of pulmonary embolism. 11. Status post Raymond filter. PLAN: The patient will be followed closely. No additional recommendations are made. She is on appropriate bronchodilators. She is currently on IV heparin. Prognosis is guarded. We really do not need to pursue the diagnosis of pulmonary embolism at this time, given the fact that we are going to treat her, anyway. Additional recommendations and suggestions are forthcoming.
[2016-08-22] MEDS ORDERED: IOHEXOL 350 MG/ML 25 ML BOTTLE (ORAL USE) PO PRN (18:06)
[2016-08-22] MEDS: IOHEXOL 350 MG/ML 25 ML BOTTLE (ORAL USE) PO PRN ×2 (18:19→19:35)
--- NOTE | 2016-08-22 18:23 | P.CONS ---
History of Present Illness - Reason for Consult Consult date: 08/22/16 on treatment for breast cancer Requesting physician: Tate Keenan - Chief Complaint progressive LLE swelling - History of Present Illness Mrs. Khalil is a very pleasant female pt of Dr. Garcia with a history of a stage IIIC breast cancer involving the left breast diagnosed in January 2008. She had neoadjuvant therapy with four cycles of AC followed by four cycles of Taxol given in a dose dense fashion. She had a mastectomy in July 2008 and consolidative radiation therapy. She was started on Femara in October 2008. She was continued beyond 5 years due to her increased risk based on initial stage. She had a mammogram of the right breast on 01/27 which was felt to be benign. follow up some weight loss was noted and she had a minimally elevated Ca27- 29, no changes in POC were made. She developed left sided low back pain in and lost more wt., MRI was done on the lumbar/sacral spine on 02/26/14 which showed multilevel disc disease. She received steroid shots from Dr. Carmona with relief. Follow up 12/30 she had continued weight loss. PET was positive at T11 with an expansile lesion seen in the rt transverse process, a sclerotic lesion in the sacral ala, and another area of uptake in the rt hip, non specific uptake was seen in a small lung nodule and in a left inguinal node. Biopsy of the T11 lesion on 01/07/15 confirmed metastatic breast cancer. She was started on palbociclib and continued Femara with addition of bisphosphonate therapy 01/22/15. She was admitted to [facility] on 02/26/15 for a bilateral PE and was discharged on Xarelto, readmitted on 03/08/15 with a CVA, ASA was added. She was admitted to [facility] in late 03/31 for severe anemia due to GI bleed. Xarelto was stopped and an IVC filter placed. She had multiple hospitalizations over the next year, mostly for respiratory c/o including COPD exacerbation and pneumonia. A PET was done on 02/26/16 for evaluation with uptake at known sites of metastatic disease which was stable from before. Pt has been on palbociclib and letrazole since 01/22/15 with good tolerance and response. Pt came to the hospital with c/o LLE swelling, persistent with progressive discomfort. She is having some SOB and ZURI with activity, denies epistaxis, hemoptysis, hematuria, no dark, black or tarry stool, she does have numerous bruises and bad scleral hemorrhage, denies vision loss or eye pain, her RLQ is tender, this radiates across lower abd to midline, started since admission. She denies any SE r/t her breast cancer treatment. Review of Systems All systems: negative Constitutional: Reports as per HPI Past Medical History Past Medical History: Cancer, COPD, GI Bleed, Hypertension, Pulmonary Embolus ( PE), Rheumatoid Arthritis (RA) Additional Past Medical History / Comment(s): OSTEOPOROSIS,DIVERICULOSIS, CHRONICK BACK PAIN, 2008 dx with stage IV ductal breast ca with mets to lymph nodes, osteoporosis,sigmoid diverticulosis(per colonoscopy), chronic back pain , peripheral neuropathy d/t chemo tx's,HOME O2 3 LITERS N/C atc, ANEMIA HAD BLOOD TRANSFUSION, History of Any Multi-Drug Resistant Organisms: None Reported Past Surgical History: Appendectomy, Tonsillectomy Additional Past Surgical History / Comment(s): lt breast bx/ lt breast lumpectomy/ then mastectomy, injection into spine for siatic nerve pain, colonoscpy/polypectomy(benign), cyst removed from ovary Past Anesthesia/Blood Transfusion Reactions: No Reported Reaction Additional Past Anesthesia/Blood Transfusion Reaction / Comm: RECEIVED BLOOD-NO REACTIONS. Past Psychological History: Anxiety Additional Psychological History / Comment(s): related to health, takes ativan, patient currently living with daughter Smoking Status: Former smoker Past Alcohol Use History: Rare Additional Past Alcohol Use History / Comment(s): STARTED SMOKING AT AGE 14, QUIT NOVEMBER 2014 Past Drug Use History: None Reported - Past Family History Mother Family Medical History: Cancer Additional Family Medical History / Comment(s): pancreatic cancer Father Family Medical History: Cancer Additional Family Medical History / Comment(s): LUNG CANCER Sister(s) Family Medical History: Cancer Additional Family Medical History / Comment(s): patient states that her 2 sisters both had pancreatic cancer Medications and Allergies Home Medications Medication Instructions Recorded Confirmed Type Letrozole [Femara] 2.5 mg PO HS 01/16/14 08/20/16 History Albuterol Inhaler [Ventolin Hfa 2 puff INHALATION RT-QID PRN 11/04/14 08/20/16 History Inhaler] HYDROcodone/APAP 7.5-325MG [[place] 1 tab PO Q4H PRN 02/26/15 08/20/16 History 7.5-325] Palbociclib [Ibrance] 125 mg PO DIRECTED 02/26/15 08/20/16 History Albuterol Nebulized [Ventolin 2.5 mg INHALATION RT-QID PRN 04/02/15 08/20/16 History Nebulized] Acetaminophen Tab [Tylenol] 500 mg PO Q6H PRN 09/02/15 08/20/16 History Aspirin EC [Ecotrin Low Dose] 162 mg PO DAILY 09/02/15 08/20/16 History Pantoprazole [Protonix] 40 mg PO AC-BRKFST 09/08/15 08/20/16 History Cholecalciferol [Vitamin D3] 1,000 unit PO DAILY 12/15/15 08/20/16 History LORazepam [Ativan] 0.5 mg PO TID PRN 12/15/15 08/20/16 History Metoprolol Succinate [Toprol XL] 12.5 mg PO HS 12/15/15 08/20/16 History Budesonide/Formoterol Fumarate 2 puff INHALATION RT-BID 01/21/16 08/20/16 History [Symbicort 160-4.5 Mcg Inhaler] Furosemide [Lasix] 40 mg PO DAILY 03/11/16 08/20/16 History Potassium Chloride ER [K-Dur 20] 20 meq PO DAILY 03/11/16 08/20/16 History Fluticasone Nasal [place] [Flonase 1 spray EA NOSTRIL BID PRN 04/02/16 08/20/16 History Nasal [place]] Sertraline [Zoloft] 100 mg PO DAILY 04/02/16 08/20/16 History Cetirizine HCl [Zyrtec] 10 mg PO DAILY 08/14/16 08/20/16 History Umeclidinium [place] [Incruse 1 puff INHALATION RT-DAILY 08/14/16 08/20/16 History Ellipta] Cyclobenzaprine [Flexeril] 10 mg PO HS 08/20/16 08/20/16 History Allergies Allergy/AdvReac Type Severity Reaction Status Date / Time Sulfa (Sulfonamide Allergy Rash/Hives Verified 08/20/16 12:24 Antibiotics) Physical Exam Vitals: Vital Signs Temp Pulse Pulse Pulse Resp BP Pulse Ox 08/22/16 16:03 78 08/22/16 15:51 74 08/22/16 15:30 97.8 F 109 H 18 117/76 91 L 08/22/16 12:00 88 08/22/16 11:50 97.3 F L 80 98 22 122/64 91 L 08/22/16 08:48 78 08/22/16 08:38 78 08/22/16 08:00 97.9 F 89 18 110/62 100 08/22/16 04:00 97.1 F L 92 92 17 123/77 97 08/22/16 00:00 97.5 F L 100 100 16 125/67 95 08/21/16 20:14 88 08/21/16 20:03 88 08/21/16 20:00 96.8 F L 109 H 109 H 17 124/68 95 Intake and Output 08/22/16 08/22/16 08/22/16 06:59 14:59 22:59 Intake Total 1507.62 118 272 Output Total 1000 Balance 507.62 118 272 Intake: IV 586.48 272 Heparin Sodium,Porcine/ 426.48 148 D5w Pmx 25,000 unit In Dextrose/Water 1 500ml. bag @ 18 UNITS/KG/HR 26. 94 mls/hr IV .[id number] [facility] Rx#:[id number] Sodium Chloride 0.9% 1, 160 124 000 ml @ 20 mls/hr IV . Q24H [facility] Rx#:[id number] Intake, IV Titration 441.14 Amount Heparin Sodium,Porcine/ 441.14 D5w Pmx 25,000 unit In Dextrose/Water 1 500ml. bag @ 18 UNITS/KG/HR 26. 94 mls/hr IV .[id number] [facility] Rx#:[id number] Oral 480 118 Output: Urine 1000 Other: Voiding Method Bedpan # Voids 2 Weight 79.3 kg - Constitutional General appearance: average body habitus, cooperative, no acute distress - EENT right scleral hemorrhage ENT: hearing grossly normal, normal oropharynx - Neck Neck: no lymphadenopathy - Respiratory Respiratory: bilateral: CTA - Cardiovascular Heart sounds: normal: S1, S2 Abnormal Heart Sounds: no systolic murmur, no diastolic murmur, no rub, no S3 Gallop, no S4 Gallop, no click, no other leg Peripheral Edema: bilateral: Trace - Gastrointestinal General gastrointestinal: soft Localized gastrointestinal: tender: RLQ - Integumentary multiple ecchymotic areas on extremities - Neurologic Neurologic: CNII-XII intact - Musculoskeletal Musculoskeletal: generalized weakness, strength equal bilaterally - Psychiatric Psychiatric: A&O x's 3, appropriate affect, intact judgment & insight Results CBC & Chem 7: 08/22/16 05:43 08/22/16 05:43 Labs: Abnormal Lab Results - Last 24 Hours (Table) 08/22/16 08/22/16 08/22/16 Range/Units 05:43 05:43 05:43 RBC 2.72 L (3.80-5.40) m/uL Hgb 9.4 L (11.4-16.0) gm/dL Hct 28.3 L (34.0-46.0) % MCV 104.1 H (80.0-100.0) fL Lymphocytes # 0.8 L (1.0-4.8) k/uL APTT 52.8 H (22.0-30.0) sec BUN 45 H (7-17) mg/dL Creatinine 1.62 H (0.52-1.04) mg/dL POC Glucose (mg/dL) (75-99) mg/dL Calcium 7.9 L (8.4-10.2) mg/dL Total Protein 6.2 L (6.3-8.2) g/dL 08/22/16 Range/Units 05:46 RBC (3.80-5.40) m/uL Hgb (11.4-16.0) gm/dL Hct (34.0-46.0) % MCV (80.0-100.0) fL Lymphocytes # (1.0-4.8) k/uL APTT (22.0-30.0) sec BUN (7-17) mg/dL Creatinine (0.52-1.04) mg/dL POC Glucose (mg/dL) 101 H (75-99) mg/dL Calcium (8.4-10.2) mg/dL Total Protein (6.3-8.2) g/dL Comments: BLE doppler report reviewed V/Q report reviewed Assessment and Plan (1) DVT (deep venous thrombosis) Narrative/Plan: Agree with heparin drip for now. Cont for 24-48 hours as pt is symptomatic. Pt has a history of GI bleeding in the past while on anticoagulants, Dr. Garcia is reviewing treatment options in her specific case and recommendations will be made. Status: Acute (2) Metastatic breast cancer Narrative/Plan: Pt is currently on palbociclib and letrozole, cont treatment as scheduled. Status: Acute Plan: Due to pt c/o lower abd pain CT with oral contrast has been ordered for evaluation.
[2016-08-22 19:58] LABS: Glucose,Whole Blood 328 mg/dL (75-99)
[2016-08-22] MEDS ORDERED: NALOXONE 0.4 MG/ML 1 ML VIAL SQ STA (20:23)
[2016-08-22] MEDS ORDERED: NALOXONE 0.4 MG/ML 10 ML VIAL IVP PRN (20:23)
[2016-08-22] MEDS ORDERED: NALOXONE 0.4 MG/ML 1 ML VIAL IV STA (20:23)
[2016-08-22] MEDS ORDERED: NALOXONE 0.4 MG/ML 1 ML VIAL IV PRN (20:26)
[2016-08-22 20:47] LABS: ABG PH 7.09 (7.35-7.45)
[2016-08-22 20:48] LABS: ABG Base Excess -13.4 mmol/L; ABG HCO3 15 mmol/L (21-25); ABG PCO2 53 mmHg (35-45); ABG PO2 118 mmHg (83-108)
[2016-08-22 20:56] LABS: CH 34.6; CHCM 31.8; HCT 24.6 % (34.0-46.0); HDW 3.05; Hypochromasia Slight; MCH 34.4 pg (25.0-35.0); MCHC 31.4 g/dL (31.0-37.0); Macrocytosis Marked; Mean Platelet Volume 8.4; RBC 2.24 m/uL (3.80-5.40); RDW 15.4 % (11.5-15.5); WBC (Perox) 7.04
[2016-08-22 20:57] LABS: INR 1.1 (<1.1); Partial Thromboplastin Time 31.4 sec (22.0-30.0); Prothrombin Time 11.1 sec (9.0-12.0)
[2016-08-22 21:00] LABS: HGB 7.7 gm/dL (11.4-16.0); MCV 109.5 fL (80.0-100.0)
[2016-08-22 21:01] LABS: Calcium 7.6 mg/dL (8.4-10.2); Magnesium 2.7 mg/dL (1.6-2.3); Potassium 5.4 mmol/L (3.5-5.1)
[2016-08-22 21:11] LABS: Glucose,Whole Blood 248 mg/dL (75-99)
--- NOTE | 2016-08-22 21:13 | XR ---
EXAMINATION TYPE: XR chest 1V portable DATE OF EXAM: 08/22/2016 8:50 PM COMPARISON: 08/20/2016 HISTORY: TECHNIQUE: Single frontal view of the chest is obtained. FINDINGS: There is a 2 cm nodular density in the right midlung. The other lung murphy are fairly stacey ar. There is no heart failure. There are chest leads. There is no pleural effusion. There are no sonal r masses. IMPRESSION: Right pulmonary nodule is unchanged compared to recent exam. The nodule is new compared to 09/29/2015. Nodule is stable compared to 04/02/2016.
[2016-08-22] MEDS ORDERED: NALOXONE 4 MG in SODIUM CHLORIDE 0.9% 100 ML IV SCH (21:30)
[2016-08-22 21:47] LABS: Creatine Kinase MB 2.5 ng/mL (0.0-2.4)
[2016-08-22 22:16] LABS: Add Differential Manual Differential
[2016-08-22 22:20] LABS: Manual Review Performed; Metamyelocytes % 1.5 %; Nucleated Red Blood Cells 1 /100 WBC (0-0); Polychromasia Present; Total Cells Counted 200; WBC 7.1 k/uL (3.8-10.6)
[2016-08-22 22:21] LABS: Large Platelets Present; Ovalocytes Present
[2016-08-22] MEDS ORDERED: SODIUM CHLORIDE 0.9% 2,000 ML IV ONE (23:00)
[2016-08-22] MEDS ORDERED: NOREPINEPHRIN 4 MG-0.9% NS PMX 4 MG/250 ML ML IV ONE (23:07)
[2016-08-22] MEDS: NOREPINEPHRIN 4 MG-0.9% NS PMX 4 MG/250 ML ML IV SCH (23:10)
[2016-08-23 00:17] LABS: Amorphous Sediment,Urine Few /hpf; Appearance,Urine Turbid (Clear); Bacteria,Urine Rare /hpf; Bilirubin,Urine Negative (Negative); Glucose,Urine (UA) Trace (Negative); Ketones,Urine Negative (Negative); Leukocyte Esterase,Urine Negative (Negative); Mucus,Urine Occasional /hpf; Nitrite,Urine Negative (Negative); PH, Urine 5.5 (5.0-8.0); Particle Count 36401; Protein,Urine 2+ (Negative); RBC,Urine >182 /hpf (0-5); Specific Gravity,Urine 1.014 (1.001-1.035); Squamous Epithelial Cell,Urine 8 /hpf (0-4); UA Billing (MACRO vs. MICRO) MICRO; Urobilinogen,Urine <2.0 mg/dL (<2.0); WBC,Urine 36 /hpf (0-5)
[2016-08-23] MEDS ORDERED: EPINEPHrine 10 ML SYRINGE (0.1 MG/ML) ONE ×2 (00:35)
[2016-08-23] MEDS ORDERED: TERBUTALINE FOR EXTRAVASATION 1 MG/ML VIAL SQ STA (01:31)
--- NOTE | 2016-08-23 01:38 | CT ---
EXAM: CT Abdomen and Pelvis Without Intravenous Contrast CLINICAL HISTORY: Reason: ABD pain TECHNIQUE: Axial computed tomography images of the abdomen and pelvis without intravenous contrast. CTDI is 17 mGy and DLP is 874 mGy-cm. This CT exam was performed using one or more of the following dose reduction techniques: automated exposure control, adjustment of the mA and/or kV according to patient size, and/or use of iterative reconstruction technique. COMPARISON: No relevant prior studies available. FINDINGS: Artifacts: Limited exam due to streak artifact from the upper extremities. Lower thorax: Suspected left mastectomy. Partially imaged 2.9 x 1.8 cm mass in the right middle lobe. 2.3 cm spiculated mass versus consolidation in the right lower lobe. Further workup recommended. Oral contrast in the distal esophagus. Mild scarring/atelectasis at bilateral lung bases. ABDOMEN: Liver: Indeterminate 1.5 cm hypoattenuating lesion in the liver. Further workup recommended. Gallbladder and bile ducts: Unremarkable. No calcified stones. No ductal dilation. Pancreas: Atrophic pancreas. No ductal dilation. Spleen: Accessory splenule. Otherwise, unremarkable. Adrenals: Unremarkable. No mass. Kidneys and ureters: Bilateral atrophic kidneys. Trace nonspecific bilateral perinephric fat stranding. Recommend correlation with urinalysis if concern for pyelonephritis. No hydronephrosis. No radiopaque obstructing stone. Stomach and bowel: Diverticulosis. No bowel obstruction. Appendix: Appendix not visualized. PELVIS: Bladder: Bladder decompressed with a Grullon. Reproductive: Unremarkable as visualized. ABDOMEN and PELVIS: Intraperitoneal space: Moderate to large amount of free fluid/evolving hemorrhage tracking along bilateral paracolic gutters and into the pelvis. Given free fluid surrounds bilateral ureters; recommend correlation with urinalysis to exclude ureteritis. Bones/joints: Indeterminate lytic/sclerotic changes of the right sacrum; an aggressive process such as infection or malignancy not excluded. Moderate-severe degenerative changes of bilateral hips. Severe degenerative changes of the spine with mild scoliosis. Soft tissues: Heterogeneous enlargement of bilateral abdominal rectus muscles measuring up to 4.6 cm thick on the right and up to 3 cm thick on the left concerning for evolving hematomas. Please correlate for history of recent trauma. Mild edema of the lower abdominal body wall. Notable perianal swelling; please correlate with physical exam. Vasculature: IVC filter. Sharp caliber change of the IVC at the level of the IVC filter, decompressed superiorly and distended/dense inferiorly extending into the left common iliac vein suspicious for thrombus. Mild atherosclerotic calcifications of the aorta and major branch vessels. Lymph nodes: Unremarkable. No enlarged lymph nodes. IMPRESSION: 1. Limited exam due to streak artifact from the upper extremities. 2. Heterogeneous enlargement of bilateral abdominal rectus muscles measuring up to 4.6 cm thick on the right and up to 3 cm thick on the left concerning for evolving hematomas. Please correlate for history of recent trauma. 3. Mild edema of the lower abdominal body wall. 4. Notable perianal swelling; please correlate with physical exam. 5. Suspected left mastectomy. 6. Partially imaged 2.9 x 1.8 cm mass in the right middle lobe. 2.3 cm spiculated mass versus consolidation in the right lower lobe. Further workup recommended. 7. Indeterminate 1.5 cm hypoattenuating lesion in the liver. Further workup recommended. 8. IVC filter. Sharp caliber change of the IVC at the level of the IVC filter, decompressed superiorly and distended/dense inferiorly extending into the left common iliac vein suspicious for thrombus. 9. Moderate to large amount of free fluid/evolving hemorrhage tracking along bilateral paracolic gutters and into the pelvis. Given free fluid surrounds bilateral ureters; recommend correlation with urinalysis to exclude ureteritis. 10. Bladder decompressed with a Grullon. 11. Bilateral atrophic kidneys. Trace nonspecific bilateral perinephric fat stranding. Recommend correlation with urinalysis if concern for pyelonephritis. No hydronephrosis. No radiopaque obstructing stone. 12. Oral contrast in the distal esophagus. 13. Appendix not visualized. 14. Diverticulosis. 15. Indeterminate lytic/sclerotic changes of the right sacrum; an aggressive process such as infection or malignancy not excluded. [employer] 08/23/16 01:51 Call Doctor Regarding Other, called Dr. Acosta on 08/23 01:51 (-04:00)
[2016-08-23] MEDS ORDERED: INSULIN LISPRO (humaLOG) 300 UNIT/3 ML VIAL SQ SCH (02:00)
[2016-08-23] MEDS ORDERED: DEXTROSE 50%-WATER 50 ML SYRINGE IVP STA (02:06)
[2016-08-23] MEDS ORDERED: DEXTROSE 50%-WATER 50 ML SYRINGE IVP ONE (02:16)
[2016-08-23 02:20] LABS: Glucose,Whole Blood 22 mg/dL (75-99)
[2016-08-23 02:20] LABS: Glucose,Whole Blood 28 mg/dL (75-99)
[2016-08-23 02:35] LABS: Glucose,Whole Blood 176 mg/dL (75-99)
[2016-08-23 02:39] LABS: CH 34.4; CHCM 31.2; HCT 20.4 % (34.0-46.0); Hypochromasia Moderate; MCHC 31.5 g/dL (31.0-37.0); Macrocytosis Marked; Mean Platelet Volume 8.5; RBC 1.84 m/uL (3.80-5.40); RDW 15.6 % (11.5-15.5); WBC 7.5 k/uL (3.8-10.6)
[2016-08-23] MEDS: NOREPINEPHRIN 4 MG-0.9% NS PMX 4 MG/250 ML ML IV SCH (02:39)
[2016-08-23] MEDS ORDERED: DEXTROSE 5% IN WATER 1,000 ML IV SCH (02:45)
[2016-08-23 02:50] LABS: Magnesium 2.7 mg/dL (1.6-2.3); Total Bilirubin 1.2 mg/dL (0.2-1.3); Total Protein 4.8 g/dL (6.3-8.2)
[2016-08-23 02:52] LABS: HGB 6.4 gm/dL (11.4-16.0)
[2016-08-23 02:55] LABS: Calcium 6.2 mg/dL (8.4-10.2); Phosphorous 12.9 mg/dL (2.5-4.5)
[2016-08-23] MEDS ORDERED: ONDANSETRON 4 MG/2 ML VIAL IVP PRN (03:58)
[2016-08-23] MEDS ORDERED: SCOPOLAMINE 1.5MG/72HR PATCH TRANSDERM PRN (03:58)
[2016-08-23] MEDS ORDERED: MORPHINE SULFATE 2 MG/ML SYRINGE IV PRN (03:58)
[2016-08-23] MEDS ORDERED: MORPHINE SULFATE 4 MG/ML SYRINGE IV PRN (03:58)
[2016-08-23] MEDS ORDERED: LORazepam 2 MG/ML SYRINGE IV PRN (03:58)
[2016-08-23] MEDS ORDERED: MORPHINE SULFATE (100 MG/2 ML) 100 MG in SODIUM CHLORIDE 0.9% 100 ML IV SCH (04:00)
[2016-08-23] MEDS: IBRANCE 125 MG PO SCH (04:31)
[2016-08-23] MEDS: FUROSEMIDE 10 MG/ML 4 ML VIAL IV SCH (04:34)
[2016-08-23] MEDS: CYCLOBENZAPRINE 10 MG TAB PO SCH (04:34)
[2016-08-23] MEDS: LETROZOLE 2.5 MG TAB PO SCH (04:34)
[2016-08-23 05:12] VITALS: BP 117/32; TEMP 94.7
[2016-08-23 05:38] VITALS: PULSE 0; RESP 0
[2016-08-23] MEDS ORDERED: HYDROCORTISONE SUCCINATE 100 MG/2 ML VIAL IV SCH (08:00)
--- NOTE | 2016-08-23 14:48 | P.DS ---
Providers Date of admission: 08/20/16 15:31 Expected date of discharge: 08/23/16 Attending physician: Clint Mitchell Consults: 08/20/16 15:36 Consult Physician Routine Consulting Provider: Shiv Garcia Consult Reason/Comments: History of breast cancer, history of PE, DVT Do you want consulting provider notified?: Yes 08/21/16 09:11 Consult Physician Routine Consulting Provider: Joana Hatch Consult Reason/Comments: evaluate raymond filter Do you want consulting provider notified?: Yes Primary care physician: [facility] Course: This is a 71-year-old female patient of Dr. 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 She had neoadjuvant chemotherapy followed by mastectomy in July 2008 followed by consolidative radiation therapy. She was started on Femara in October 2008. In January 2014 she presented with left-sided low back pain along with weight loss. Weight loss continued over the next year and in 12/30, a PET scan was ordered revealing evidence of metastasis in the bones, most prominently at T11 as well as in the pelvic girdle. At that time the patient did have lung nodules, with the most prominent lesion being about 6 mm in the right posterolateral lung base. She also had liver nodules. These were negative on PET scan. She was switched to Ibrance and Femara, as well as Xgeva. In 03/01, she developed right lower extremity DVT and bilateral PE and was started on Xarelto. Subsequently, she developed left-sided neurologic deficit due to a CVA and aspirin was added. In mid 03/31 she developed GI bleeding. Xarelto was stopped and an IVC filter placed. She continued on the same regimen for her breast cancer, without any evidence of progression. The patient has significant COPD and has had recurrent admissions for COPD exacerbation. Repeat CTA showed increase in size of the right posterolateral a lung nodule, which is now 1.5 cm. A couple of lesions noted in the liver, the largest 1.12.4 cm in the medial segment of the left lobe. Her most recent hospitalization was March 2016 which time she was treated for acute respiratory failure due to acute exacerbation of COPD and diastolic heart failure. Dr. Mathur is her pulmonary physician and Dr. Garcia is following her for oncology and she is currently on Incruse Ellipta, Ibrance, Femara. Patient states she developed lower extremity edema more so on the left leg and came back into [facility] emergency center. A venous Doppler was positive for bilateral DVTs in both legs. It showed nonocclusive thrombus in the right and left common femoral veins and popliteal veins. Patient was started on a heparin drip and admitted to the selective care unit. As morning she developed shortness of breath. She was unable to go for a CAT scan of the chest due to renal function. She is on IV Lasix and DuoNeb treatments. A V/Q scan has been scheduled and patient admitted to the selective care unit and consults in place with Dr. Edmonds, oncology, cardiology and we have added in consult with Dr. Hatch regarding Raymond filter. 08/22: VQ scan shows intermediate probability for pulmonary embolism. Patient has been seen by Dr. Li and acute coronary syndrome ruled out. Echocardiogram has been ordered and pending. Patient has also been seen by Dr. Hatch and Dr. Edmonds. Patient to be switched over to subcutaneous Lovenox. Consult in place for oncology. 08/23: Patient has been seen by oncology and CAT scan of the abdomen was ordered. Patient was having lower abdominal pain. CAT scan returned back positive for heterogeneous enlargement of the bilateral abdominal rectus muscles measuring up to 4.6 cm thick on the right and up to 3 cm thick on the left considering evolving hematomas. Mild edema of the lower abdominal body wall. Notable perianal swelling correlate. Masses in the lungs were redemonstrated. IVC filter decompressed superiorly and distended/dense inferiorly extended into the left common iliac vein suspicious for thrombus. Moderate to large amount of free fluid or evolving hemorrhage tracking along the bilateral paracolic gutters and into the pelvis. Given free fluid surrounds bilateral ureters recommend correlation with urinalysis to exclude ureteritis. Bilateral atrophic kidneys. Last evening, patient was feeling dizzy and weak while on the commode chair. She was complaining of feeling a band around her stomach. She was able to undergo the CAT scan of the abdomen. Subsequently, patient developed hypotension, tachycardia and tachypnea and pulse ox dropped to 87%. She was cool mottled to the lower extremities with a firm distended abdomen. She was transferred to the intensive care unit she was placed on Narcan family was contacted and patient was made comfort care and patient on the morning of August 22. Discharge diagnoses: 1. Acute bilateral lower extremity DVTs with previous history of same along with pulmonary embolism status post Raymond filter in the past unable to rule out acute pulmonary embolism 2. Acute abdominal wall hematomas and hemorrhage with acute blood loss anemia preliminary cause of 3. Stage IIIc metastatic breast cancer. 4. Chronic hypoxemic respiratory failure secondary to COPD on home O2. 5. History of bilateral pulmonary embolism as well as DVT of the right lower extremity. Post IVC filter since the patient developed GI bleed post Xarelto. 6. Hypertension and hypertensive cardiovascular disease. 7. ALLERGIC rhinitis. 8. Vitamin D deficiency. 9. Anxiety generalized. Impression and plan of care have been directed as dictated by the signing physician. Keena Emerson nurse practitioner acting as scribe for signing physician. Patient Condition at Discharge: Undetermined Plan - Discharge Summary Discharge Medication List RX: Letrozole [Femara] 2.5 mg PO HS 01/16/14 [History] RX: Albuterol Inhaler [Ventolin Hfa Inhaler] 2 puff INHALATION RT-QID PRN [History] RX: HYDROcodone/APAP 7.5-325MG [[place] 7.5-325] 1 tab PO Q4H PRN 02/26/15 [ History] RX: Palbociclib [Ibrance] 125 mg PO DIRECTED 02/26/15 [History] RX: Albuterol Nebulized [Ventolin Nebulized] 2.5 mg INHALATION RT-QID PRN [History] RX: Acetaminophen Tab [Tylenol] 500 mg PO Q6H PRN 09/02/15 [History] RX: Aspirin EC [Ecotrin Low Dose] 162 mg PO DAILY 09/02/15 [History] RX: Pantoprazole [Protonix] 40 mg PO AC-BRKFST 09/08/15 [History] RX: Cholecalciferol [Vitamin D3] 1,000 unit PO DAILY 12/15/15 [History] RX: LORazepam [Ativan] 0.5 mg PO TID PRN 12/15/15 [History] RX: Metoprolol Succinate [Toprol XL] 12.5 mg PO HS 12/15/15 [History] RX: Budesonide/Formoterol Fumarate [Symbicort 160-4.5 Mcg Inhaler] 2 puff INHALATION RT-BID 01/21/16 [History] RX: Furosemide [Lasix] 40 mg PO DAILY 03/11/16 [History] RX: Potassium Chloride ER [K-Dur 20] 20 meq PO DAILY 03/11/16 [History] RX: Fluticasone Nasal [place] [Flonase Nasal [place]] 1 spray EA NOSTRIL BID PRN [History] RX: Sertraline [Zoloft] 100 mg PO DAILY 04/02/16 [History] RX: predniSONE 20 mg PO DAILY #50 04/04/16 [Rx] Cetirizine HCl [Zyrtec] 10 mg PO DAILY 08/14/16 [History] Umeclidinium [place] [Incruse Ellipta] 1 puff INHALATION RT-DAILY 08/14/16 [ History] Cyclobenzaprine [Flexeril] 10 mg PO HS 08/20/16 [History] Follow up Appointment(s)/Referral(s): Luis Galicia MD [Primary Care Provider] - 1-2 days Discharge Disposition: - Preliminary Cause of Preliminary Cause of : Acute abdominal wall hematomas and hemorrhage with acute blood loss anemia
== END 2016-08-23 05:36 | disposition expired ==
LOC: EC 08:36 → 6SEL 15:31 → 6ICU 08-22 20:45
PROVIDERS: ADMIT Internal Medicine Geriatric Medicine; ATTEND Internal Medicine Geriatric Medicine
DX: I82.413 Acute embolism and thrombosis of femoral vein, bilateral (principal); I21.4 Non-ST elevation (NSTEMI) myocardial infarction; I26.99 Other pulmonary embolism without acute cor pulmonale; J96.11 Chronic respiratory failure with hypoxia; I13.0 Hypertensive heart and chronic kidney disease with heart failure and stage 1 through stage 4 chronic kidney disease, or unspecified chronic kidney disease; C79.51 Secondary malignant neoplasm of bone; I50.32 Chronic diastolic (congestive) heart failure; C77.9 Secondary and unspecified malignant neoplasm of lymph node, unspecified; D62 Acute posthemorrhagic anemia; I95.9 Hypotension, unspecified; I82.432 Acute embolism and thrombosis of left popliteal vein; I82.502 Chronic embolism and thrombosis of unspecified deep veins of left lower extremity; C50.919 Malignant neoplasm of unspecified site of unspecified female breast; E55.9 Vitamin D deficiency, unspecified; F41.1 Generalized anxiety disorder; J30.9 Allergic rhinitis, unspecified; K57.30 Diverticulosis of large intestine without perforation or abscess without bleeding; K76.89 Other specified diseases of liver; M06.9 Rheumatoid arthritis, unspecified; M81.0 Age-related osteoporosis without current pathological fracture; N18.3 Chronic kidney disease, stage 3 (moderate); G89.29 Other chronic pain; R91.1 Solitary pulmonary nodule; J44.9 Chronic obstructive pulmonary disease, unspecified; R58 Hemorrhage, not elsewhere classified; M79.81 Nontraumatic hematoma of soft tissue; M54.9 Dorsalgia, unspecified; G62.9 Polyneuropathy, unspecified; Z51.5 Encounter for palliative care; Z79.82 Long term (current) use of aspirin; Z79.899 Other long term (current) drug therapy; Z86.711 Personal history of pulmonary embolism; Z87.891 Personal history of nicotine dependence; Z99.81 Dependence on supplemental oxygen; Z88.2 Allergy status to sulfonamides
CPT/HCPCS: 36415; 36600; 71010; 71020; 74176; 78582; 80048; 80053; 81001; 81003; 82272; 82550; 82553; 82805; 83735; 83880; 84100; 84132; 84484; 85025; 85027; 85379; 85610; 85730; 86850; 86900; 86901; 86920; 87040; 87086; 93005; 93970; 94640; 94660; 94760; 96365; 96375; 96376; 99285